=== PATIENT | male | born 2000 | race Caucasian/White ===

== ENCOUNTER 2024-07-14 13:53 | Inpatient (IN) | payer BC, SELFPAY ==
[2024-07-14 14:10] VITALS: BP 132/78; PULSE 103; TEMP 36.8; O2SAT 96
--- OUTSIDE RECORDS SUMMARY | 2024-07-14 14:50 | XMS_ITS | Clinical Summary ---
Author Organization [facility] Address [address] [place] [id number] Phone Care Team Providers Care Computer Consultant Name Role Phone Physician, No Pcp Primary Care Provider Unavaila ble Allergies No known active allergies Medications divalproex (DEPAKOTE) [address] tablet Take 1 tablet (500 mg total) by mouth 2 (two) times a day. 5 Active risperiDONE (RisperDAL) 2 mg tablet Take 1 tablet (2 mg total) by mouth 2 (two) times a day. 5 Active LORazepam (ATIVAN) 1 mg tablet Take 1 tablet (1 mg total) by mouth every 8 (eight) hours if needed for anxiety. Max Daily Amount: 3 mg Active melatonin 3 mg tablet Take 2 tablets (6 mg total) by mouth at bedtime as needed for sleep. Active cloNIDine (CATAPRES) 0.1 mg tablet Take 0.1mg by mouth twice daily 5 Active folic acid (FOLVITE) 1 mg tablet Take 1 tablet (1,000 mcg total) by mouth 1 (one) time each day. 5 Active hydrOXYzine pamoate (VISTARIL) 50 mg capsule Take 1 capsule (50 mg total) by mouth 3 (three) times a day if needed for anxiety. 5 Active lithium (ESKALITH) 450 mg CR tablet Take 450mg by mouth twice daily 5 Active loratadine (CLARITIN) 10 mg tablet Take 1 tablet (10 mg total) by mouth 1 (one) time each day. 5 Active Daily-Latoya tablet Take 1 tablet by mouth 1 (one) time each day. Active nicotine (NICODERM CQ) 21 mg/[address] 1 patch on the skin 1 (one) time each day at the same time. 5 Active nicotine polacrilex (NICORETTE) [address] 1 each (2 mg total) into mouth between cheek and gum every 2 (two) hours if needed for smoking cessation. Active thiamine 100 mg tablet Take 1 tablet (100 mg total) by mouth 1 (one) time each day. 5 Active Invega Sustenna 234 mg/1.5 mL syringe 1.5 ML INTRAMUSCULAR ONCE AT 1:00 PM FOR 1 DAY 5 Active Encounters Date Type Department Care Team Description 07/12/2024 5:40 PM EDT - 07/14/2024 1:47 PM EDT Emergency [facility] [address] [place] [address] Keagan Anders MD Millay, Scot A, MD Kenton, Mark A, MD Garvin, MD Dereje Duenas Matthew C, Discharge Disposition: [facility] 05/10/2024 Telephone Internal Medicine - [place] [address] [place] [id number] Jose Carlos Castillo MD 05/07/2024 11:40 AM EST - 05/09/2024 9:50 AM EST [facility] Emergency [address] [place] [id number] Marques Espinoza MD Christensen, Tyler M, MD Garvin, MD Zamzam Duenas Konstantin, MD Millay, Scot A, MD Suicidal ideation (Primary Dx); 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, [facility] V28) Discharge Disposition: Home or Self Care from Last 3 Months Surgical History Surgery Date Site/Laterality Comments OTHER SURGICAL HISTORY PROCEDURE: DENIES PREVIOUS SURGERY Medical History Medical History Date Comments Heart murmur DX:Heart murmur Depression Hypokalemia 03/2023 per records [facility] Schizophrenia ([facility] V24, [facility] V28) 10/2023 per records [facility] Family History Medical History Relation Name Comments Other: heart murmur Father Depression Maternal Grandmother Relation Name Status Comments Father Maternal Grandmother Social History Tobacco Use Types Packs/Day Years Used Date Smoking Tobacco: Former Smokeless Tobacco: Never Alcohol Use Standard Drinks/Week Comments No 0 (1 standard drink = 0.6 oz pur e alcohol) Sex and Gender Information Value Date Recorded Sex Assigned at Male 05/07/2024 1:41 PM EST Legal Sex Male 10:05 AM EST Gender Identity Male 05/07/2024 1:41 PM EST Sexual Orientation Straight 05/07/2024 1: 41 PM EST Obstetrics History Last Filed Vital Signs Vital Sign Reading Time Taken Comments Blood Pressure 129/69 07/14/2024 11:53 AM EDT Pulse 76 07/14/2024 11:53 AM EDT Temperature 37 ??C (98.6 ??F) 07/14/2024 11:53 AM EDT Respiratory Rate 18 07/14/2024 11:53 AM EDT Oxygen Saturation 97% 07/14/2024 11:53 AM EDT Inhaled Oxygen Concentration - - Weight 98 kg (216 lb) 07/12/2024 5:13 PM EDT Height 180.3 cm (5' 11 ) 07/12/2024 5:13 PM EDT Body Mass Index 30.13 07/12/2024 5:13 PM EDT Plan of Treatment Health Maintenance Due Date Last Done Comments Meningococcal B Vaccine (1 of 2 - Standard) 2016 Depression Screening 02/04/2022 HIV Screening 02/04/2022 Hepatitis C Screening 02/04/2022 Social Influencers of Health Screening 02/04/2022 DTaP,Tdap,and Td Vaccines (7 - Td or Tdap) 10/20/2022 10/20/2012, 08/29/2005, 08/29/2005, Additional history exists COVID-19 Vaccine ( - season) 2023 03/21/2021, 09/18/2020, 08/28/2020 Influenza Vaccine (Season Ended) 2024 03/07/2004 Pneumococcal Vaccine: Pediatrics (0 to 5 Years) and At-Risk Patients (6 to 64 Years) Aged Out 02/04/2001, 2000, 2000 No longer eligible based on patient's age to complete this topic Hepatitis B Vaccines Completed 08/06/2001, 02/01/2001, 2000 HIB Vaccines Completed 11/11/2001, 07/2001, 02/04/2001, Additional history exists IPV Vaccines Completed 08/29/2005, 07/2001, 08/06/2001, Additional history exists MMR Vaccines Completed 08/29/2005, 08/06/2001 Varicella Vaccines Completed 11/28/2009, 08/06/2001 HPV Vaccines Completed 10/26/2015, 04/2014, 10/20/2012 Hepatitis A Vaccines Completed 10/26/2015, 10/21/19 13 Meningococcal ACWY Vaccine Completed 10/24/2016, RSV Immunization Patients Under 20 months Aged Out No longer eligible based on patient's age to complete this topic Procedures Procedure Name Priority Date/Time Associated Diagnosis Comments POCT GLUCOSE BLOOD Routine 07/12/2024 7: 32 PM EDT ECG 12-LEAD STAT 07/12/2024 7:21 PM EDT XR CHEST 2 VIEWS STAT 07/12/2024 7:13 PM EDT METHADONE SCREEN, URINE STAT 07/12/2024 6:18 PM EDT FENTANYL, URINE STAT 07/12/2024 6:18 PM EDT LEE URINE CULTURE TUBE STAT 07/12/2024 5:52 PM EDT URINALYSIS WITH REFLEX MICROSCOPIC AND CULTURE STAT 07/12/2024 5:52 PM EDT URINALYSIS WITH REFLEX MICROSCOPIC AND CULTURE STAT 07/12/2024 5:52 PM EDT THYROID STIMULATING HORMONE STAT Add-on 07/12/2024 5:30 PM EDT ACETAMINOPHEN LEVEL STAT Add-on 07/12/2024 5 :30 PM EDT ETHANOL STAT Add-on 07/12/2024 5:30 PM EDT CBC WITH AUTO DIFFERENTIAL STAT 07/12/2024 5:30 PM EDT LITHIUM LEVEL STAT 07/12/2024 5:30 PM EDT AMMONIA STAT 07/12/2024 5:30 PM EDT COMPREHENSIVE METABOLIC PANEL STAT 07/12/2024 5:30 PM EDT CBC AND DIFFERENTIAL STAT 07/12/2024 5:30 PM EDT METHADONE SCREEN, URINE STAT 05/07/2024 11:54 AM EST PHENCYCLIDINE, URINE STAT 05/07/2024 11:54 AM EST BUPRENORPHINE SCREEN, URINE STAT 05/07/2024 11:54 AM EST DRUG ABUSE SCREEN 8A PANEL, URINE STAT 05/07/2024 11:54 AM EST CBC WITH AUTO DIFFERENTIAL STAT 05/07/2024 11:53 AM EST SALICYLATE LEVEL STAT 05/07/2024 11:5 3 AM EST ACETAMINOPHEN LEVEL STAT 05/07/2024 1 1:53 AM EST ETHANOL STAT 05/07/2024 11:53 AM EST COMPREHENSIVE METABOLIC PANEL STAT 05/07/2024 11:53 AM EST CBC AND DIFFERENTIAL STAT 05/07/2024 11:53 AM EST from Last 3 Months Results * POCT Glucose, blood (07/12/2024 7:32 PM EDT) [facility] Glucose POCT 85 70 - 100 mg/dL 07/12/2024 7:33 PM EDT [facility] Blood Capillary blood specimen / Unknown 07/12/2024 7:32 PM EDT 07/12/2024 7:34 PM EDT Keagan Anders MD LAB POINT OF CARE T EST DOCKED DEVICE UNSOLICITED RESULTS Final Result Performing Organization Address [facility]/ZIP Co de Phone Number [facility] [address] [place] [address], [place] [phone] * ECG 12 lead (07/12/2024 7:21 PM EDT) Ventricular Rate ECG 86 BPM GEMUSE Atrial Rate 86 BPM GEMUSE P-R Interval 174 ms GEMUSE QRS Duration 96 ms GEMUSE Q-T Interval 390 ms GEMUSE QTc 466 ms GEMUSE P Wave [place] 48 degrees GEMUSE R [place] 41 degrees GEMUSE T [place] 41 degrees GEMUSE ECG Interpretation Normal sinus rhythm Normal ECG No previous ECGs available Confirmed by KISHAN DUMONT ([id number]) on 07/13/2024 8:19:06 AM GEMUSE 07/12/2024 7:21 PM EDT 07/13/2024 8:19 AM EDT Keagan Anders MD ECG ORDERABLES Final Resul t Performing Organization Address City/[facility]/ZIP Co de Phone Number [facility] * XR Chest 2 Views (07/12/2024 7:13 PM EDT) Anatomical Region Laterality Modality Body Radiographic Martha ging 07/13/2024 8:19 AM EDT Impressions 07/13/2024 8:21 AM EDT 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 Otherwise, normal examination. Code 10907 -------- FINAL REPORT -------- Dictated By: Kuldip Christian Dictated Date: 07/13/2024 08:19 ET Assigned Physician: Kuldip Christian Reviewed and Electronically Signed By: Kuldip Christian Signed Date: 07/13/2024 08:21 ET Workstation ID: [id number] Transcribed By: Self Edit Transcribed Date: 07/13/2024 08:19 ET Narrative 07/13/2024 8:21 AM EDT HISTORY: The patient is a 23-year-old male with altered mental status. FINDINGS: PA and lateral radiographs of the chest, without previous for comparison, demonstrate the left first rib to be rudimentary, a congenital variant. The bony structures are otherwise of normal appearance. The cardiac and mediastinal contours are within normal limits. The lungs and costophrenic angles are clear. Procedure Note Kuldip Christian MD - 07/13/2024 HISTORY: The patient is a 23-year-old male with altered mental status. FINDINGS: PA and lateral radiographs of the chest, without previous forcomparison, demonstrate the left first rib to be rudimentary, a congenitalvariant. The bony structures are otherwise of normal appearance. Thecardiac and mediastinal contours are within normal limits. The lungs andcostophrenic angles are clear. 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 Otherwise, normalexamination. Code 15795 -------- FINAL REPORT -------- Dictated By: Kuldip Christian Dictated Date: 07/13/2024 08:19 ET Assigned Physician: Kuldip Christian Reviewed and Electronically Signed By: Kuldip Christian Signed Date: 07/13/2024 08:21 ET Workstation ID: [id number] Transcribed By: Self Edit Transcribed Date: 07/13/2024 08:19 ET us Keagan Anders MD IMG XR PROCEDURES Final Res ult * Methadone, urine (07/12/2024 6:18 PM EDT) Only the most recent of2 resultswithin the time period is included. Methadone Screen, Urine Negative Negative LAB CHEMISTRY METHOD 07/12/2024 7:21 PM EDT [facility] Comment: Assay cutoff 300 ng/mL Semi-quantitative assay for screening purposes only. Unconfirmed screening result should not be used for non-medical purposes. *ALTERNATE METHOD CONFIRMATION DONE UPON REQUEST ONLY* Urine Urine specimen obtained by clean catch procedure / Unknown Non-blood Collection / Unknown 07/12/2024 6:18 PM EDT 07/12/2024 6:30 PM EDT Keagan Anders MD LAB URINE ORDERABLES Final Result Performing Organization Address [facility] de Phone Number [facility] [address] [place] [address], [place] [phone] * Fentanyl urine (07/12/2024 6:18 PM EDT) Fentanyl, Ur Negative Negative LAB CHEMISTRY METHOD 07/12/2024 7:16 PM EDT [facility] Urine Urine specimen obtained by clean catch procedure / Unknown Non-blood Collection / Unknown 07/12/2024 6:18 PM EDT 07/12/2024 6:30 PM EDT Narrative [facility] - 07/12/2024 7:16 PM EDT Assay cutoff 1 ng/mL Semi-quantitative assay for screening purposes only. Unconfirmed screening result should not be used for non-medical purposes. *ALTERNATE METHOD CONFIRMATION DONE UPON REQUEST ONLY* Keagan Anders MD LAB URINE ORDERABLES Final Result Performing Organization Address [facility] de Phone Number [facility] [address] [place] [address], [place] [phone] * (ABNORMAL) Urinalysis with reflex microscopic and culture (07/12/2024 5:52 PM EDT) Specific [place] Urine 1.018 1.003 - 1.030 LAB URINALYSIS - AUTOMATED METHOD 07/12/2024 6:46 PM EDT [facility] pH, Urine 6.0 5.0 - 8.0 pH LAB URINALYSIS - AUTOMATED METHOD 07/12/2024 6:46 PM EDT [facility] Leukocytes, Urine Negative Negative LAB URINALYSIS - AUTOMATED METHOD 07/12/2024 6:46 PM [facility] Nitrite, Urine Negative Negative LAB URINALYSIS - AUTOMATED METHOD 07/12/2024 6:46 PM [facility] Protein, Urine 30(A) <=Trace mg/dL LAB URINALYSIS - AUTOMATED METHOD 07/12/2024 6:46 PM [facility] Glucose, Urine Negative Negative mg/dL LAB URINALYSIS - AUTOMATED METHOD 07/12/2024 6:46 PM [facility] Ketones, Urine 40(A) Negative mg/dL LAB URINALYSIS - AUTOMATED METHOD 07/12/2024 6:46 PM [facility] Urobilinogen, Urine 1.0 0.2 - 1.0 mg/dL LAB URINALYSIS - AUTOMATED METHOD 07/12/2024 6:46 PM [facility] Bilirubin, Urine Negative Negative LAB URINALYSIS - AUTOMATED METHOD 07/12/2024 6:46 PM [facility] Blood, Urine Negative Negative LAB URINALYSIS - AUTOMATED METHOD 07/12/2024 6:46 PM [facility] RBC, Urine 1.9 0 - 4 /HPF LAB URINALYSIS - AUTOMATED METHOD 07/12/2024 6:46 PM [facility] WBC, Urine 2.3 0 - 4 /HPF LAB URINALYSIS - AUTOMATED METHOD 07/12/2024 6:46 PM [facility] Squamous Epithelial, Urine 21 0 - 60 /LPF LAB URINALYSIS - AUTOMATED METHOD 07/12/2024 6:46 PM [facility] Bacteria, Urine Negative Negative /HPF LAB URINALYSIS - AUTOMATED METHOD 07/12/2024 6:46 PM [facility] Hyaline Casts, Urine 1.6 0 - 3 /LPF LAB URINALYSIS - AUTOMATED METHOD 07/12/2024 6:46 PM [facility] Urine Urine specimen obtained by clean catch procedure / Unknown Non-blood Collection / Unknown 07/12/2024 5:52 PM EDT 07/12/2024 6:29 PM EDT Keagan Anders MD LAB URINE ORDERABLES Final Result Performing Organization Address [facility]/ZIP Co de Phone Number [facility] [address] [place] [address], [place] [phone] * Lee urine culture tube (07/12/2024 5:52 PM EDT) Pathologist [facility] Extra Tube Hold for add-ons. 07/12/2024 8:01 PM EDT [facility] Comment:Auto resulted. Urine Urine specimen obtained by clean catch procedure / Unknown Non-blood Collection / Unknown 07/12/2024 5:52 PM EDT 07/12/2024 6:29 PM EDT Keagan Anders MD LAB URINE ORDERABLES Final Result Performing Organization Address [facility] Co de Phone Number [facility] [address] [place] [address], [place] [phone] * (ABNORMAL) CBC auto differential (07/12/2024 5:30 PM EDT) Only the most recent of2 resultswithin the time period is included. WBC 8.1 4.8 - 10.8 K/[facility] HEMETOLOGY METHOD 07/12/2024 6:01 PM EDT [facility] RBC 5.20 4.50 - 5.50 M/[facility] LAB HEMETOLOGY METHOD 07/12/2024 6:01 PM EDT [facility] Hemoglobin 14.9 13.5 - 17.5 g/dL LAB HEMETOLOGY METHOD 07/12/2024 6:01 PM EDT [facility] Hematocrit 45.4 42.0 - 54.0 % LAB HEMETOLOGY METHOD 07/12/2024 6:01 PM [facility] MCV 87.1 79.0 - 98.0 FL LAB HEMETOLOGY METHOD 07/12/2024 6:01 PM [facility] MCH 28.6 27.0 - 32.0 pcg LAB HEMETOLOGY METHOD 07/12/2024 6:01 PM [facility] MCHC 32.8 32.0 - 37.0 g/dL LAB HEMETOLOGY METHOD 07/12/2024 6:01 PM [facility] RDW 13.1 11.0 - 15.0 % LAB HEMETOLOGY METHOD 07/12/2024 6:01 PM [facility] Platelets 247 130 - 400 K/mcL LAB HEMETOLOGY METHOD 07/12/2024 6:01 PM [facility] MPV 11.9(H) 7.0 - 11.0 FL LAB HEMETOLOGY METHOD 07/12/2024 6:01 PM [facility] NRBC 0.0 <1.0 % LAB HEMETOLOGY METHOD 07/12/2024 6:01 PM [facility] NRBC Absolute 0.00 <0.10 K/mcL LAB HEMETOLOGY METHOD 07/12/2024 6:01 PM [facility] Neutrophils Relative 74.7 % LAB HEMETOLOGY METHOD 07/12/2024 6:01 PM [facility] Lymphocytes Relative 16.0 % LAB HEMETOLOGY METHOD 07/12/2024 6:01 PM [facility] Monocytes Relative 7.7 % LAB HEMETOLOGY METHOD 07/12/2024 6:01 PM [facility] Eosinophils Relative 0.9 % LAB HEMETOLOGY METHOD 07/12/2024 6:01 PM [facility] Basophils Relative 0.5 % LAB HEMETOLOGY METHOD 07/12/2024 6:01 PM EDT [facility] Immature Granulocytes Relative 0.2 % LAB HEMETOLOGY METHOD 07/12/2024 6:01 PM EDT [facility] Neutrophils Absolute 6.07 1.50 - 7.00 K/mcL LAB HEMETOLOGY METHOD 07/12/2024 6:01 PM EDT [facility] Lymphocytes Absolute 1.30 1.00 - 5.00 K/mcL LAB HEMETOLOGY METHOD 07/12/2024 6:01 PM EDT [facility] Monocytes Absolute 0.63 0.20 - 1.00 K/mcL LAB HEMETOLOGY METHOD 07/12/2024 6:01 PM EDT [facility] Eosinophils Absolute 0.07 0.00 - 0.50 K/mcL LAB HEMETOLOGY METHOD 07/12/2024 6:01 PM EDT [facility] Basophils Absolute 0.04 0.00 - 0.20 K/mcL LAB HEMETOLOGY METHOD 07/12/2024 6:01 PM EDT [facility] Immature Granulocytes Absolute 0.02 0.00 - 0.03 K/mcL LAB HEMETOLOGY METHOD 07/12/2024 6:01 PM EDT [facility] Blood Venous blood specimen / Unknown Venipuncture / Unknown 07/12/2024 5:30 PM EDT 07/12/2024 5:51 PM EDT us Keagan Anders MD LAB BLOOD ORDERABLES Final Result [facility] [address] [place] [address], * Thyroid stimulating hormone (TSH) (07/12/2024 5:30 PM EDT) TSH 3.69 0.40 - 4.00 mcIU/mL LAB CHEMISTRY METHOD 07/12/2024 8:56 PM EDT [facility] Blood Venous blood specimen / Unknown Venipuncture / Unknown 07/12/2024 5:30 PM EDT 07/12/2024 5:51 PM EDT Keagan Anders MD LAB BLOOD ORDERABLES Final Result Performing Organization Address [facility]/ZIP Co de Phone Number [facility] [address] [place] [address], [place] [phone] * (ABNORMAL) Ammonia (07/12/2024 5:30 PM EDT) Ammonia <10(L) 11 - 35 mcmol/L LAB CHEMISTRY METHOD 07/12/2024 6:20 PM EDT [facility] Blood Venous blood specimen / Unknown Venipuncture / Unknown 07/12/2024 5:30 PM EDT 07/12/2024 5:51 PM EDT Keagan Anders MD LAB BLOOD ORDERABLES Final Result Performing Organization Address [facility] de Phone Number [facility] [address] [place] [address], [place] [phone] * Ethanol (07/12/2024 5:30 PM EDT) Only the most recent of2 resultswithin the time period is included. Ethanol Level 5 0 - 10 mg/dL LAB CHEMISTRY METHOD 07/12/2024 6:33 PM EDT [facility] Blood Venous blood specimen / Unknown Venipuncture / Unknown 07/12/2024 5:30 PM EDT 07/12/2024 5:51 PM EDT Keagan Anders MD LAB BLOOD ORDERABLES Final Result Performing Organization Address City/[facility] Co de Phone Number [facility] [address] [place] [address], * (ABNORMAL) Acetaminophen level (07/12/2024 5:30 PM EDT) Only the most recent of2 resultswithin the time period is included. Acetaminophen Level <2.0(L) 10.0 - 30.0 mcg/mL LAB CHEMISTRY METHOD 07/12/2024 6:33 PM EDT [facility] Blood Venous blood specimen / Unknown Venipuncture / Unknown 07/12/2024 5:30 PM EDT 07/12/2024 5:51 PM EDT Keagan Anders MD LAB BLOOD ORDERABLES Final Result Performing Organization Address [facility]/ZIP Co de Phone Number [facility] [address] [place] [address], * [place] level (07/12/2024 5:30 PM EDT) [place] Level 0.7 0.6 - 1.2 mEq/L LAB CHEMISTRY METHOD 07/12/2024 6:33 PM EDT [facility] Blood Venous blood specimen / Unknown Venipuncture / Unknown 07/12/2024 5:30 PM EDT 07/12/2024 5:51 PM EDT Keagan Anders MD LAB BLOOD ORDERABLES Final Result [facility] [address] [place] [address], * (ABNORMAL) Comprehensive metabolic panel (07/12/2024 5:30 PM EDT) Only the most recent of2 resultswithin the time period is included. Sodium 135 133 - 145 mmol/L LAB CHEMISTRY METHOD 07/12/2024 6:33 PM EDT [facility] Potassium 4.0 3.5 - 5.5 mmol/L LAB CHEMISTRY METHOD 07/12/2024 6:33 PM [facility] Comment:Hemolysis present Chloride 102 96 - 110 mmol/L LAB CHEMISTRY METHOD 07/12/2024 6:33 PM [facility] CO2 25 21 - 32 mmol/L LAB CHEMISTRY METHOD 07/12/2024 6:33 PM [facility] Anion Gap 8 3 - 11 LAB CHEMISTRY METHOD 07/12/2024 6:33 PM [facility] Glucose 97 70 - 100 mg/dL LAB CHEMISTRY METHOD 07/12/2024 6:33 PM [facility] BUN 8 5 - 25 mg/dL LAB CHEMISTRY METHOD 07/12/2024 6:33 PM [facility] Creatinine 0.92 0.70 - 1.30 mg/dL LAB CHEMISTRY METHOD 07/12/2024 6:33 PM [facility] eGFR 120 >=60 mL/min/1. 73m2 LAB CHEMISTRY METHOD 07/12/2024 6:33 PM [facility] Comment:Calculation based on the Chronic Kidney Disease Epidemiology Collaboration (CKD-EPI) equation refit without adjustment for race. BUN/Creatinine Ratio 8.7 LAB CHEMISTRY METHOD 07/12/2024 6:33 PM [facility] Calcium 9.9 8.5 - 10.5 mg/dL LAB CHEMISTRY METHOD 07/12/2024 6:33 PM [facility] AST (SGOT) 16 10 - 42 unit/L LAB CHEMISTRY METHOD 07/12/2024 6:33 PM [facility] Comment:Hemolysis present ALT (SGPT) 21 10 - 60 unit/L LAB CHEMISTRY METHOD 07/12/2024 6:33 PM [facility] Alkaline Phosphatase 90 42 - 121 unit/L LAB CHEMISTRY METHOD 07/12/2024 6:33 PM [facility] Total Protein 8.5(H) 6.0 - 8.0 g/dL LAB CHEMISTRY METHOD 07/12/2024 6:33 PM EDT [facility] Albumin 4.7 3.2 - 5.0 g/dL LAB CHEMISTRY METHOD 07/12/2024 6:33 PM EDT [facility] Total Bilirubin 0.6 0.0 - 1.4 mg/dL LAB CHEMISTRY METHOD 07/12/2024 6:33 PM EDT [facility] Blood Venous blood specimen / Unknown Venipuncture / Unknown 07/12/2024 5:30 PM EDT 07/12/2024 5:51 PM EDT us Keagan Anders MD LAB BLOOD ORDERABLES Final Result [facility] [address] [place] [address], * (ABNORMAL) Drug abuse screen 8a panel, urine (05/07/2024 11:54 AM EST) Amphetamine Screen, Ur Negative Negative LAB CHEMISTRY METHOD 5 12:46 PM [facility] Comment:Certain OTC medicati ons containing ephedrine, phenylephrine, pseudoephedrine and phenylpropanolamine can cause false positive results. Barbiturate Screen, Ur Negative Negative LAB CHEMISTRY METHOD 5 12:46 PM EST [facility] Benzodiazepine Screen, Ur Negative Negative LAB CHEMISTRY METHOD 5 12:46 PM [facility] Cocaine Screen, Ur Negative Negative LAB CHEMISTRY METHOD 5 12:46 PM [facility] Opiate Screen, Ur Negative Negative LAB CHEMISTRY METHOD 5 12:46 PM [facility] Cannabinoid (THC) Screen, Ur Positive(A ) Negative LAB CHEMISTRY METHOD 5 12:46 PM [facility] Comment:Specimens from patie nts taking pantoprazole sodium (Protonix) have been shown to produce false positive results. Oxycodone Screen, Ur Negative Negative LAB CHEMISTRY METHOD 12:46 PM EST [facility] Fentanyl, Ur Negative Negative LAB CHEMISTRY METHOD 12:46 PM EST [facility] Urine Urine specimen obtained by clean catch procedure / Unknown Non-blood Collection / Unknown 05/07/2024 11:54 AM EST 05/07/2024 12:14 PM EST Narrative [facility] - 05/07/2024 12:46 PM EST Assay cutoffs: Amphetamines ? 1000 ng/mL Barbiturates ?200 ng/mL Benzodiazepines ?? 200 ng/mL Cocaine ? 300 ng/mL Fentanyl ?1 ng/mL Opiates ? 300 ng/mL Oxycodone ? 100 ng/mL THC ?50 ng/mL Semi-quantitative assay for screening purposes only. Unconfirmed screening result should not be used for non-medical purposes. *ALTERNATE METHOD CONFIRMATION DONE UPON REQUEST ONLY* Marques Espinoza MD LAB URINE ORDERABLES Final Resu lt [facility]) [facility] [address] [place] [address], * Buprenorphine screen, urine (05/07/2024 11:54 AM EST) Buprenorphine Screen Urine Negative Negative LAB CHEMISTRY METHOD 05/07/2024 12:46 PM EST [facility] Urine Urine specimen obtained by clean catch procedure / Unknown Non-blood Collection / Unknown 05/07/2024 11:54 AM EST 05/07/2024 12:14 PM EST Narrative [facility] - 05/07/2024 12:46 PM EST Assay cutoff 5 ng/mL Semi-quantitative assay for screening purposes only. Unconfirmed screening result should not be used for non-medical purposes. *ALTERNATE METHOD CONFIRMATION DONE UPON REQUEST ONLY* us Marques Espinoza MD LAB URINE ORDERABLES Final Resu lt Performing Organization Address City/[facility]/ZIP Co de Phone Number [facility] [address] [place] [address], [place] [phone] * Phencyclidine, urine (05/07/2024 11:54 AM EST) PCP Scrn, Ur Negative Negative LAB CHEMISTRY METHOD 05/07/2024 12:46 PM EST [facility] Comment: Assay cutoff 25 ng/mL Semi-quantitative assay for screening purposes only. Unconfirmed screening result should not be used for non-medical purposes. *ALTERNATE METHOD CONFIRMATION DONE UPON REQUEST ONLY* Urine Urine specimen obtained by clean catch procedure / Unknown Non-blood Collection / Unknown 05/07/2024 11:54 AM EST 05/07/2024 12:14 PM EST us Marques Espinoza MD LAB URINE ORDERABLES Final Resu lt Performing Organization Address City/[facility]/ZIP Co de Phone Number [facility] [address] [place] [address], [place] [phone] * (ABNORMAL) Salicylate level (05/07/2024 11:53 AM EST) Salicylate Level <1.7(L) 2.0 - 29.0 mg/dL LAB CHEMISTRY METHOD 05/07/2024 12:53 PM EST [facility] Blood Venous blood specimen / Unknown Venipuncture / Unknown 05/07/2024 11:53 AM EST 05/07/2024 12:14 PM EST us Marques Espinoza MD LAB BLOOD ORDERABLES Final [facility]u lt [facility] [address] [place] [address], from Last 3 Months Insurance [facility] Care Teams Computer Consultant Relationship Specialty Start Date End Date Physician, No Pcp PCP - General 07/12/24
--- NOTE | 2024-07-14 19:49 | PC.ADMIT ---
Mr. Deras is a 23 year old cis male who goes by he/ him pronouns. He was admitted from [facility] and arrived on the unit at 2:07pm via stretcher. He carries the diagnosis of unspecified schizophrenia spectrum. Cooperative with skin/ safety check which was unremarkable except for acne on his back and torso. He signed a CV and was put on safety checks q 15 minutes. Per [facility], Mr. Deras was brought to their ER on 07/12/24 by his grandmother (with whom he lives) for recent decompensation following an inpatient psych admission elsewhere where they changed his medication regimen. He endorses AVH and reportedly has been experiencing command AH telling him not to eat, however he did not say this to this radio script writer. He reportedly denied SI /HI at [facility]. When he arrived here on M5 his speech was slowed and he appeared thought blocked, mostly giving one-word responses after very long pauses. When reviewing the systems, Mr. Deras responded most often with, Probably , but did not elaborate in any way (e.g. Do you have a history of concussions/ seizures/ cardiac issues/ respiratory issues? Do you have sleep apnea/ diabetes, etc.) There is no mention of medical conditions in the information from [facility]. Mr. Deras declined to complete his menus, complete his Safety Tool or contribute to his Initial Treatment Plan and presented with a paranoid edge, stating that all food is laced with cannabis, and that he hasn't slept because, I don't know what sleep is. Med reconciliation was done with his pharmacy and Prescriber's office. Once he settled in, he spent time pacing the unit and his eye contact did improve. He also became a bit more verbal, Is this [place]? Is there something I should eat? Drink?
[2024-07-15 08:06] VITALS: BP 131/78; PULSE 70; TEMP 36.9; O2SAT 96
--- NOTE | 2024-07-15 09:41 | HO.PSYADMNOT ---
HPI Date of Service: 07/15/24 Chief Complaint: UNSPECIFIED SCHIZOPHRENIA SPECTRUM Sources of Information: patient interviewed, chart reviewed and crisis/core team assessment reviewed HPI Subjective Notes: Pichardo Warning, Conditional Voluntary and 3 Day Narrative: pt seen at 12:15pm on 07/15/24 Pt is a 23 yo male with history of schizophrenia (possibly schizoaffective disorder) who presents for worsening psychotic symptoms at the behest of his family who report patient has not been eating, in the face of being off medication. Patient is a limited historian as he is significantly internally preoccupied and with significant thought blocking. Patient acknowledges that he has auditory hallucinations and says don't know what's me and what's not. On inquiry about AH He nods yes to AH telling him to not eat don't drink., On the unit he still eating and drinking, which he says is because he is trying not to listen to voices... i see other people do stuff...their not not doing things... Patient denies SI but says sometimes he feels like dying but I just haven't... He denies past suicide attempts saying he ends up restricted says he is not allowed to hurt himself. Regarding medications, patient says that Invega does help but he then says (in between long silences from thought blocking) I thought medication gave control to the voices... To run your own thoughts... I am not looking for anything... I ran away from emotions... Patient endorses insomnia and says he can not sleep. Regarding paranoid ideations, patient says i never had privacy for a long time...if i new there was a no privacy i would have acted differently, but i guess this was a test... Pt says everyone is invading my privacy... and says random people know about him...How? pt says he just knows..other people tell him stuff...i don't know what the sources is... Pt's says he thinks typewriter aligner and SW are included in this.. Past Psychiatric History: multiple inpt admissions Medical Evaluation Reviewed: Hospitalist Eval Pending [facility] Family History: deferred Social History: lives at home with parents some college Substance History: unclear Trauma History: deferred Diagnostics Vital Signs (24Hr): Vital Signs - 24 hr 07/14/24 14:10 07/15/24 08:06 Temperature 98.3 F 98.5 F Pulse Rate 103 H 70 Blood Pressure 132/78 131/78 Pulse Oximetry 96 96 Oxygen Delivery Method Room Air Room Air Labs 07/15/24 13:18 07/15/24 13:18 Meds/Allergies Meds Home Medications ?Medication ?Instructions ?Recorded ?Confirmed ?Type clonidine HCl 0.1 mg tablet 0.1 mg 2XD PRN Anxiety 07/14/24 07/14/24 History divalproex 500 mg tablet,delayed 500 mg PO BID 07/14/24 07/14/24 History release folic acid 1 mg tablet 1 mg PO DAILY 07/14/24 07/14/24 History lithium carbonate 450 mg 450 mg PO BID 07/14/24 07/14/24 History tablet,extended release loratadine 10 mg tablet 10 mg PO DAILY 07/14/24 07/14/24 History multivitamin (Daily-Latoya tablet) 1 tab PO DAILY 07/14/24 07/14/24 History paliperidone palmitate 234 mg/1.5 234 mg IM QMONTH 07/14/24 07/14/24 History mL intramuscular syringe (Invega Sustenna) thiamine HCl (vitamin B1) 100 mg 100 mg PO DAILY 07/14/24 07/14/24 History tablet Allergies Allergies Allergy/AdvReac Type Severity Reaction Status Date / Time No Known Allergies Allergy Verified 07/14/24 16:16 Mental Status Exam Mental Status Exam Narrative: Pt is alert and oriented; behavior is isolative, guarded, quiet, internally preoccupied; patient is not in distress; dressed in casual attire, disheveled; mood is described as anxious; affect blunted; eye contact avoidant; Speech significantly latent; quiet; psychomotor retardation present; thought process marred by thought blocking; goal directed; Thought content is on paranoid ideations, AH; seems to deny SI/no HI. CAH. Patients insight and judgment appear impaired. Assessment & Plan Assessment & Plan (1) Schizophrenia: Status: Acute Code(s): F20.9 - Schizophrenia, unspecified Plan HPI: Pt is a 23 yo male with history of schizophrenia (possibly schizoaffective disorder) who presents for worsening psychotic symptoms at the behest of his family who report patient has not been eating, in the face of being off medication. Patient is a limited historian as he is significantly internally preoccupied and with significant thought blocking. Patient acknowledges that he has auditory hallucinations and says don't know what's me and what's not. On inquiry about AH He nods yes to AH telling him to not eat don't drink., On the unit he still eating and drinking, which he says is because he is trying not to listen to voices... i see other people do stuff...their not not doing things... Patient denies SI but says sometimes he feels like dying but I just haven't... He denies past suicide attempts saying he ends up restricted says he is not allowed to hurt himself. Regarding medications, patient says that Invega does help but he then says (in between long silences from thought blocking) I thought medication gave control to the voices... To run your own thoughts... I am not looking for anything... I ran away from emotions... Patient endorses insomnia and says he can not sleep. Regarding paranoid ideations, patient says i never had privacy for a long time...if i new there was a no privacy i would have acted differently, but i guess this was a test... Pt says everyone is invading my privacy... and says random people know about him...How? pt says he just knows..other people tell him stuff...i don't know what the sources is... Pt's says he thinks typewriter aligner and SW are included in this.. formulation; clinical reasoning: floridly psychotic; almost no insight. Discussed meds and he says he'll try Clozapine; does not want to get back on Invega (also, father reported says Invega sustenna 234mg worked well but for only 2 weeks). He says he can't sleep; will restart Gardner (most recently prescribed) significant negative symptoms PLAN: CV q15mn Start Clozapine 25mg bedtime (ANC wnl) Gardner ER 600mg qhs Patient educated on: diagnosis and medication risk/benefits Informed Consent: understands, does not understand and further education needed Reason for continued inpatient stay Substantial Risk for: inability to function Statement Statement: I have reviewed the history and physical and performed a pertinent examination on my patient. No changes have occurred unless specified. If the History and Physical was not performed prior to admission, the Hospitalist's service will be consulted for completing the admission physical. Time Spent With Patient Time: Total time managing care of this patient today ____ minutes.
--- NOTE | 2024-07-15 11:45 | PM.IMHP ---
History of Present Illness Date of Service: 07/15/24 Attending physician on admission: Srini Harris Chief Complaint: Medical H&P Patient is a 23-year-old male with a past medical history of schizophrenia, heart murmur, history of hypokalemia. Recent psychiatric admissions and medications were recently changed, he was started on Invega unclear when the last dose was. He presented with his grandmother due to being more lethargic and not eating. No reported history of alcohol or drug use. On exam he is not answering any questions, does shake his head yes or no after a slight delay. He is not talking but he is following instructions such as take a deep breath. He is cooperative with exam. Asked if he would like something to drink and he shook his head yes and is observed drinking some alexandra huy. Review of Systems Review of Systems: Yes Unobtainable due to mental status PMFSH Social History Household Members: Other Household Members Other:: grandmother Housing: House Do you presently have visiting nurse or other home services: Yes Patient Tobacco Use Status: Former Tobacco user e-Cigarette/Vaping Use: Never Used Second Hand Smoke Exposure: No Substance Use Type: Marijuana Meds Allergies Allergy/AdvReac Type Severity Reaction Status Date / Time No Known Allergies Allergy Verified 07/14/24 16:16 Active Medications: Current Medications Acetaminophen (Acetaminophen 325 Mg Tablet) 650 mg PO Q6H PRN PRN Reason: Headache/Pain, Scale 1-10 Al Hydroxide/Mg Hydroxide (Magnesium Hydrox/Alum Hydrox 30 Ml Oral.Susp) 30 ml PO Q6H PRN PRN Reason: Heartburn/Nausea Clonidine HCl (Clonidine Hcl 0.1 Mg Tablet) 0.1 mg PO BID PRN; Protocol PRN Reason: anxiety Folic Acid (Folic Acid 1 Mg Tablet) 1 mg PO DAILY [facility] Last Admin: 07/15/24 09:02 Dose: Not Given Hydroxyzine HCl (Hydroxyzine Hcl 25 Mg Tablet) 25 mg PO Q6H PRN PRN Reason: mild anxiety Loratadine (Loratadine 10 Mg Tablet) 10 mg PO DAILY [facility] Last Admin: 07/15/24 09:02 Dose: Not Given Magnesium Hydroxide (Milk Of Magnesia 30 Ml Oral.Susp) 30 ml PO DAILY PRN PRN Reason: Constipation Multivitamins/Vitamin C (Multivitamin Tablet) 1 tab PO DAILY [facility] Last Admin: 07/15/24 09:02 Dose: Not Given Nicotine Polacrilex (Nicotine Polacrilex 2 Mg Gum) 4 mg BUCCAL Q2H PRN PRN Reason: Nicotine Cravings Thiamine HCl (Thiamine Hcl 100 Mg Tablet) 100 mg PO DAILY [facility] Last Admin: 07/15/24 09:03 Dose: Not Given Trazodone HCl (Trazodone Hcl 50 Mg Tablet) 50 mg PO BEDTIME MRX1 PRN PRN Reason: Insomnia Home Medications ?Medication ?Instructions ?Recorded ?Confirmed ?Last Taken ?Type clonidine HCl 0.1 mg tablet 0.1 mg 2XD PRN Anxiety 07/14/24 07/14/24 Unknown History divalproex 500 mg tablet,delayed 500 mg PO BID 07/14/24 07/14/24 Unknown History release folic acid 1 mg tablet 1 mg PO DAILY 07/14/24 07/14/24 Unknown History lithium carbonate 450 mg 450 mg PO BID 07/14/24 07/14/24 Unknown History tablet,extended release loratadine 10 mg tablet 10 mg PO DAILY 07/14/24 07/14/24 Unknown History multivitamin (Daily-Latoya tablet) 1 tab PO DAILY 07/14/24 07/14/24 Unknown History paliperidone palmitate 234 mg/1.5 234 mg IM QMONTH 07/14/24 07/14/24 Unknown History mL intramuscular syringe (Invega Sustenna) thiamine HCl (vitamin B1) 100 mg 100 mg PO DAILY 07/14/24 07/14/24 Unknown History tablet Physical Exam Vital Signs and Narrative: Vital Signs: Last Vital Signs Temp 98.5 F 07/15/24 08:06 Pulse 70 07/15/24 08:06 BP 131/78 07/15/24 08:06 Pulse Ox 96 07/15/24 08:06 O2 Del Method Room Air 07/15/24 08:06 Alert, Declines to answer questions or is unable to at this time, Follows directions. Neuro: Unable to perform complete neurological exam due to limited participation by patient, no obvious deficits, He did ambulate with steady gait. Followed simple instructions. ENT: hearing intact, uvula midline, lips moist, nares patent no epistaxis Cardiac: S1 S2 RRR, no murmur, no edema in Lower ext Pulmonary: lungs clear to auscultation, No increased WOB. Abdominal: BS active in all 4 quadrants, no guarding, tenderness, rebounding MSK: Strength 5/5 upper and lower extremities : no CVA tenderness no bladder distension Extremities: no edema in lower extremities Psych: Non verbal at this time, occasionally maintains eye contact. Skin: Warm and dry, Intact Assessment and Plan (1) Schizophrenia: Status: Acute Plan Schizophrenia Continue to treat per psychiatric team Comfort measures including food and fluids Thank you for allowing me to participate in the care of this patient. Signing off at this time. Please reconsult of any acute complaints or issues arise Quality Stroke Does the patient have a stroke diagnosis?: No VTE Prior VTE?: No VTE Risk Level:: Medical - low VTE Device Contraindication: Treatment Not Indicated VTE Drug Contraindication: Treatment Not Indicated
[2024-07-15 13:30] LABS: MANUAL DIFF FLAG NO
[2024-07-15 13:34] LABS: Neut%MD 67.9 %; WBCANC 7.3 X10*3/uL
[2024-07-15 13:35] LABS: Basophils Percent Auto 0.6 % (0-2); Eosinophils Absolute Auto 0.1 X10*3/uL (0.0-0.4); Eosinophils Percent Auto 1.7 % (0-4); Hematocrit 43.7 % (42.0-52.0); Hemoglobin 14.7 g/dl (14.0-18.0); Imm Gran Abs Auto 0.02 X10*3/uL (0.00-0.03); Imm Gran Pct Auto 0.3 % (0.0-0.4); Lymphocytes Absolute Auto 1.3 X10*3/uL (1.2-4.9); Lymphocytes Percent Auto 18.4 % (20-40); Mean Corpuscular HGB Conc 33.6 g/dl (31.0-36.0); Mean Corpuscular Hemoglobin 28.8 pg (27.0-33.0); Mean Corpuscular Volume 85.7 fL (80.0-98.0); Mean Platelet Volume 11.9 fL (9.4-12.4); Monocytes Absolute Auto 0.7 X10*3/uL (0.1-1.2); Monocytes Percent Auto 9.8 % (2-11); Neutrophils Absolute Auto 4.9 x10*3/uL (2.0-8.3); Neutrophils Percent Auto 69.2 % (45-73); Platelet Count 249 X10*3/uL (160-400); Red Cell Distribution Width 12.9 % (11.0-16.0); White Blood Count 7.1 X10*3/uL (4.8-10.8)
[2024-07-15 14:22] LABS: Alanine Aminotransferase 16 U/L (0-40); Albumin Level 4.9 g/dL (3.5-5.0); Alkaline Phosphatase 83 U/L (39-117); Anion Gap 13 (12-20); Aspartate Amino Transferase 20 U/L (5-37); Bilirubin Total 0.7 mg/dL (0.0-1.0); Blood Urea Nitrogen 15 mg/dL (9-16); Calcium 9.8 mg/dL (8.4-10.2); Carbon Dioxide 25 mmol/L (22-29); Chloride 101 mmol/L (96-108); Cholesterol 192 mg/dL (<200); Estimated Glomerular Filt Rate > 60; Free T4 (Free Thyroxine) 1.21 ng/dL (0.71-1.85); Glucose Random 93 mg/dL (60-115); HDL Cholesterol 30 mg/dL (>40); LDL Cholesterol Calculated 148 mg/dL (<100); Magnesium 2.3 mg/dL (1.6-2.6); Potassium 3.8 mmol/L (3.3-5.1); Sodium 135 mmol/L (135-145); Thyroid Stimulating Hormone 3.08 uIU/mL (0.32-4.0); Total Protein 8.4 g/dL (6.5-8.0); Triglycerides 72 mg/dL (<150)
[2024-07-15 14:39] LABS: Estimated Average Glucose 103 mg/dL; Hemoglobin A1C 129.2073 umol/L; Hemoglobin A1c % 5.2 % (<6.0)
[2024-07-15] MEDS: hydrOXYzine HCL 25 MG TABLET PO (17:00)
[2024-07-15 20:00] VITALS: BP 117/73; PULSE 74; TEMP 36.9; O2SAT 96
[2024-07-15] MEDS: Lithium Carbonate ER 300 MG TABLET.ER 600 MG PO (20:21)
[2024-07-15] MEDS: cloZAPine 25 MG TABLET PO (20:22)
[2024-07-15] MEDS: traZODone HCL 50 MG TABLET PO (21:39)
--- NOTE | 2024-07-16 07:31 | P.PNPSI_ITS ---
Subjective Subjective Date of Service: 07/16/24 Reason For Visit: UNSPECIFIED SCHIZOPHRENIA SPECTRUM Interim History: Pt seen, discussed with the team Pt presents with some confusion, internal preoccupation, poor appetite. Med compliance is poor To team, denies being himself. Isolative. Slept per team ~5 hours Attempts to reassure pt regarding safety, treatment he is not able to internalize at this time. Medication Compliance: Yes (07/15) Side effects from medications: No Attending Groups: No Review of Systems Acute medical concerns: No Medical Review of Systems: unchanged Review of Systems Review of Systems Yes Unobtainable due to mental status Mental Status Exam Mental Status Exam Patient Appearance: Fatigued Patient Orientation: Person and Place Level of Consciousness: Awake Patient Behavior: Guarded and Suspicious Mood Description: Withdrawn Affect Description: Withdrawn Patient Cognition Impaired: No Speech Pattern: Impoverished and Spontaneous Speech Delusions: Present Thought Process: Distracted and Rumination Thought Content: positive for Perseveration and positive for Thought Blocking Judgement: Poor Diagnostics Vital Signs (24Hr): Vital Signs - 24 hr 07/15/24 08:06 07/15/24 20:00 Temperature 98.5 F 98.4 F Pulse Rate 70 74 Blood Pressure 131/78 117/73 Pulse Oximetry 96 96 Oxygen Delivery Method Room Air Room Air Labs 07/15/24 13:18 07/15/24 13:18 Labs: Laboratory Results - last 48 hr 07/15/24 07/15/24 13:18 13:18 WBC 7.1 RBC 5.10 Hgb 14.7 Hct 43.7 MCV 85.7 MCH 28.8 MCHC 33.6 RDW 12.9 Plt Count 249 MPV 11.9 Immature Gran % (Auto) 0.3 Neut % (Auto) 69.2 Lymph % (Auto) 18.4 L [place] % (Auto) 9.8 Eos % (Auto) 1.7 Baso % (Auto) 0.6 Lymph # (Auto) 1.3 [place] # (Auto) 0.7 Eos # (Auto) 0.1 Baso # (Auto) 0.0 Abs Immat Gran (auto) 0.02 Absolute Neuts (auto) 4.9 5.0 Absolute Nucleated RBC 0.000 Nucleated RBC % (auto) 0.0 Sodium 135 Potassium 3.8 Chloride 101 Carbon Dioxide 25 Anion Gap 13 BUN 15 Creatinine 0.92 Estim Creat Clear Calc TNP Estimated GFR > 60 Random Glucose 93 Estimat Average Glucose 103 Hemoglobin A1c % 5.2 Calcium 9.8 Magnesium 2.3 Total Bilirubin 0.7 AST 20 ALT 16 Alkaline Phosphatase 83 Total Protein 8.4 H Albumin 4.9 Triglycerides 72 Cholesterol 192 LDL Cholesterol, Calc 148 H HDL Cholesterol 30 L TSH 3.08 Free T4 1.21 Medications Medications Current Medications Acetaminophen (Acetaminophen 325 Mg Tablet) 650 mg PO Q6H PRN PRN Reason: Headache/Pain, Scale 1-10 Al Hydroxide/Mg Hydroxide (Magnesium Hydrox/Alum Hydrox 30 Ml Oral.Susp) 30 ml PO Q6H PRN PRN Reason: Heartburn/Nausea Clonidine HCl (Clonidine Hcl 0.1 Mg Tablet) 0.1 mg PO BID PRN; Protocol PRN Reason: anxiety Clonidine HCl (Clonidine Hcl 0.1 Mg Tablet) 0.1 mg PO Q4H PRN; Protocol PRN Reason: moderate anxiety Clozapine (Clozapine 25 Mg Tablet) 25 mg PO BEDTIME [facility] Last Admin: 07/15/24 20:22 Dose: 25 mg Folic Acid (Folic Acid 1 Mg Tablet) 1 mg PO DAILY [facility] Last Admin: 07/15/24 09:02 Dose: Not Given Hydroxyzine HCl (Hydroxyzine Hcl 25 Mg Tablet) 25 mg PO Q6H PRN PRN Reason: mild anxiety Last Admin: 07/15/24 17:00 Dose: 25 mg [place] Carbonate ([place] Carbonate Er 300 Mg Tablet.Er) 600 mg PO BEDTIME [facility] Last Admin: 07/15/24 20:21 Dose: 600 mg Loratadine (Loratadine 10 Mg Tablet) 10 mg PO DAILY [facility] Last Admin: 07/15/24 09:02 Dose: Not Given Magnesium Hydroxide (Milk Of Magnesia 30 Ml Oral.Susp) 30 ml PO DAILY PRN PRN Reason: Constipation Multivitamins/Vitamin C (Multivitamin Tablet) 1 tab PO DAILY [facility] Last Admin: 07/15/24 09:02 Dose: Not Given Nicotine Polacrilex (Nicotine Polacrilex 2 Mg Gum) 4 mg BUCCAL Q2H PRN PRN Reason: Nicotine Cravings Thiamine HCl (Thiamine Hcl 100 Mg Tablet) 100 mg PO DAILY [facility] Last Admin: 07/15/24 09:03 Dose: Not Given Trazodone HCl (Trazodone Hcl 50 Mg Tablet) 50 mg PO BEDTIME MRX1 PRN PRN Reason: Insomnia Last Admin: 07/15/24 21:39 Dose: 50 mg Allergies Allergies Allergy/AdvReac Type Severity Reaction Status Date / Time No Known Allergies Allergy Verified 07/14/24 16:16 Assessment & Plan Assessment & Plan (1) Schizophrenia: Status: Acute Code(s): F20.9 - Schizophrenia, unspecified Plan HPI: Pt is a 23 yo male with history of schizophrenia (possibly schizoaffective disorder) who presents for worsening psychotic symptoms at the behest of his family who report patient has not been eating, in the face of being off medication. Patient is a limited historian as he is significantly internally preoccupied and with significant thought blocking. Patient acknowledges that he has auditory hallucinations and says don't know what's me and what's not. On inquiry about AH He nods yes to AH telling him to not eat don't drink., On the unit he still eating and drinking, which he says is because he is trying not to listen to voices... i see other people do stuff...their not not doing things... Patient denies SI but says sometimes he feels like dying but I just haven't... He denies past suicide attempts saying he ends up restricted says he is not allowed to hurt himself. Regarding medications, patient says that Invega does help but he then says (in between long silences from thought blocking) I thought medication gave control to the voices... To run your own thoughts... I am not looking for anything... I ran away from emotions... Patient endorses insomnia and says he can not sleep. Regarding paranoid ideations, patient says i never had privacy for a long time...if i new there was a no privacy i would have acted differently, but i guess this was a test... Pt says everyone is invading my privacy... and says random people know about him...How? pt says he just knows..other people tell him stuff...i don't know what the sources is... Pt's says he thinks television script writer and SW are included in this.. formulation; clinical reasoning: floridly psychotic; almost no insight. Discussed meds and he says he'll try Clozapine; does not want to get back on Invega (also, father reported says Invega sustenna 234mg worked well but for only 2 weeks). He says he can't sleep; will restart [place] (most recently prescribed) significant negative symptoms PLAN: CV q15mn Start Clozapine 25mg bedtime (ANC wnl) [place] ER 600mg qhs 07/16: Continue regime Reason for continued inpatient stay Substantial Risk for: rapid decompensation Time Spent With Patient Time: Total time managing care of this patient today ____ minutes.
[2024-07-16 07:57] VITALS: BP 113/80; PULSE 90; RESP 18; TEMP 36.6; O2SAT 98
--- NOTE | 2024-07-16 17:00 | PC.NURSE ---
Pt signed 3 day on 07/15. Up on 07/19. Witnessed by staff member Bean. Updated in legals.
[2024-07-16 19:37] VITALS: BP 124/84; PULSE 102; TEMP 37.1; O2SAT 97
[2024-07-16] MEDS: cloZAPine 25 MG TABLET PO (20:21)
[2024-07-16] MEDS: Lithium Carbonate ER 300 MG TABLET.ER 600 MG PO (20:21)
--- NOTE | 2024-07-17 05:49 | HO.PSYCHPN ---
Subjective Subjective Date of Service: 07/17/24 Reason For Visit: UNSPECIFIED SCHIZOPHRENIA SPECTRUM Interim History: Pt seen, discussed with team. Pt asks team for prn Haldol which is ordered. Clozapine increased to 50 mg HS this evening. Medication Compliance: Intermittent Review of Systems Review of Systems Yes Unobtainable due to mental status Mental Status Exam Mental Status Exam Patient Appearance: Fatigued Patient Orientation: Person and Place Level of Consciousness: Awake Patient Behavior: Guarded and Suspicious Mood Description: Withdrawn Affect Description: Withdrawn Patient Cognition Impaired: No Speech Pattern: Impoverished and Spontaneous Speech Delusions: Present Thought Process: Distracted and Rumination Thought Content: positive for Perseveration and positive for Thought Blocking Judgement: Poor Diagnostics Vital Signs (24Hr): Vital Signs - 24 hr 07/16/24 07:57 07/16/24 19:37 Temperature 97.8 F 98.8 F Pulse Rate 90 102 H Respiratory Rate 18 Blood Pressure 113/80 124/84 Pulse Oximetry 98 97 Oxygen Delivery Method Room Air Room Air Labs 07/15/24 13:18 07/15/24 13:18 Labs: Laboratory Results - last 48 hr 07/15/24 07/15/24 13:18 13:18 WBC 7.1 RBC 5.10 Hgb 14.7 Hct 43.7 MCV 85.7 MCH 28.8 MCHC 33.6 RDW 12.9 Plt Count 249 MPV 11.9 Immature Gran % (Auto) 0.3 Neut % (Auto) 69.2 Lymph % (Auto) 18.4 L [place] % (Auto) 9.8 Eos % (Auto) 1.7 Baso % (Auto) 0.6 Lymph # (Auto) 1.3 [place] # (Auto) 0.7 Eos # (Auto) 0.1 Baso # (Auto) 0.0 Abs Immat Gran (auto) 0.02 Absolute Neuts (auto) 4.9 5.0 Absolute Nucleated RBC 0.000 Nucleated RBC % (auto) 0.0 Sodium 135 Potassium 3.8 Chloride 101 Carbon Dioxide 25 Anion Gap 13 BUN 15 Creatinine 0.92 Estim Creat Clear Calc TNP Estimated GFR > 60 Random Glucose 93 Estimat Average Glucose 103 Hemoglobin A1c % 5.2 Calcium 9.8 Magnesium 2.3 Total Bilirubin 0.7 AST 20 ALT 16 Alkaline Phosphatase 83 Total Protein 8.4 H Albumin 4.9 Triglycerides 72 Cholesterol 192 LDL Cholesterol, Calc 148 H HDL Cholesterol 30 L TSH 3.08 Free T4 1.21 Medications Medications Current Medications Acetaminophen (Acetaminophen 325 Mg Tablet) 650 mg PO Q6H PRN PRN Reason: Headache/Pain, Scale 1-10 Al Hydroxide/Mg Hydroxide (Magnesium Hydrox/Alum Hydrox 30 Ml Oral.Susp) 30 ml PO Q6H PRN PRN Reason: Heartburn/Nausea Clonidine HCl (Clonidine Hcl 0.1 Mg Tablet) 0.1 mg PO BID PRN; Protocol PRN Reason: anxiety Clonidine HCl (Clonidine Hcl 0.1 Mg Tablet) 0.1 mg PO Q4H PRN; Protocol PRN Reason: moderate anxiety Clozapine (Clozapine 25 Mg Tablet) 25 mg PO BEDTIME [facility] Last Admin: 07/16/24 20:21 Dose: 25 mg Folic Acid (Folic Acid 1 Mg Tablet) 1 mg PO DAILY [facility] Last Admin: 07/16/24 08:48 Dose: Not Given Hydroxyzine HCl (Hydroxyzine Hcl 25 Mg Tablet) 25 mg PO Q6H PRN PRN Reason: mild anxiety Last Admin: 07/15/24 17:00 Dose: 25 mg [place] Carbonate ([place] Carbonate Er 300 Mg Tablet.Er) 600 mg PO BEDTIME [facility] Last Admin: 07/16/24 20:21 Dose: 600 mg Loratadine (Loratadine 10 Mg Tablet) 10 mg PO DAILY [facility] Last Admin: 07/16/24 08:48 Dose: Not Given Magnesium Hydroxide (Milk Of Magnesia 30 Ml Oral.Susp) 30 ml PO DAILY PRN PRN Reason: Constipation Multivitamins/Vitamin C (Multivitamin Tablet) 1 tab PO DAILY [facility] Last Admin: 07/16/24 08:48 Dose: Not Given Nicotine Polacrilex (Nicotine Polacrilex 2 Mg Gum) 4 mg BUCCAL Q2H PRN PRN Reason: Nicotine Cravings Thiamine HCl (Thiamine Hcl 100 Mg Tablet) 100 mg PO DAILY [facility] Last Admin: 07/16/24 08:49 Dose: Not Given Trazodone HCl (Trazodone Hcl 50 Mg Tablet) 50 mg PO BEDTIME MRX1 PRN PRN Reason: Insomnia Last Admin: 07/15/24 21:39 Dose: 50 mg Allergies Allergies Allergy/AdvReac Type Severity Reaction Status Date / Time No Known Allergies Allergy Verified 07/14/24 16:16 Assessment & Plan Assessment & Plan (1) Schizophrenia: Status: Acute Code(s): F20.9 - Schizophrenia, unspecified Plan HPI: Pt is a 23 yo male with history of schizophrenia (possibly schizoaffective disorder) who presents for worsening psychotic symptoms at the behest of his family who report patient has not been eating, in the face of being off medication. Patient is a limited historian as he is significantly internally preoccupied and with significant thought blocking. Patient acknowledges that he has auditory hallucinations and says don't know what's me and what's not. On inquiry about AH He nods yes to AH telling him to not eat don't drink., On the unit he still eating and drinking, which he says is because he is trying not to listen to voices... i see other people do stuff...their not not doing things... Patient denies SI but says sometimes he feels like dying but I just haven't... He denies past suicide attempts saying he ends up restricted says he is not allowed to hurt himself. Regarding medications, patient says that Invega does help but he then says (in between long silences from thought blocking) I thought medication gave control to the voices... To run your own thoughts... I am not looking for anything... I ran away from emotions... Patient endorses insomnia and says he can not sleep. Regarding paranoid ideations, patient says i never had privacy for a long time...if i new there was a no privacy i would have acted differently, but i guess this was a test... Pt says everyone is invading my privacy... and says random people know about him...How? pt says he just knows..other people tell him stuff...i don't know what the sources is... Pt's says he thinks senior copywriter and SW are included in this.. formulation; clinical reasoning: floridly psychotic; almost no insight. Discussed meds and he says he'll try Clozapine; does not want to get back on Invega (also, father reported says Invega sustenna 234mg worked well but for only 2 weeks). He says he can't sleep; will restart [place] (most recently prescribed) significant negative symptoms PLAN: CV q15mn Start Clozapine 25mg bedtime (ANC wnl) [place] ER 600mg qhs 07/17 Haldol prn (Pt request) Increase Clozapine to 50 mg HS (has tolerated 2 doses of 25 mg) Reason for continued inpatient stay Substantial Risk for: rapid decompensation Time Spent With Patient Time: Total time managing care of this patient today ____ minutes.
[2024-07-17 08:00] VITALS: BP 113/67; PULSE 59; RESP 18; TEMP 36.4; O2SAT 98
[2024-07-17] MEDS: Loratadine 10 MG TABLET PO (08:33)
[2024-07-17] MEDS: Multivitamin TABLET 1 TAB PO (08:33)
[2024-07-17] MEDS: Thiamine HCL 100 MG TABLET PO (08:33)
[2024-07-17] MEDS: Folic Acid 1 MG TABLET PO (08:33)
[2024-07-17] MEDS: Nicotine Polacrilex 2 MG GUM 4 MG BUCCAL ×2 (16:17→19:08)
[2024-07-17] MEDS: hydrOXYzine HCL 25 MG TABLET PO (16:32)
[2024-07-17] MEDS: HaloperidoL 5 MG TABLET PO (16:51)
[2024-07-17 19:08] VITALS: BP 131/81
[2024-07-17] MEDS: cloNIDine HCL 0.1 MG TABLET PO (19:08)
[2024-07-17 19:49] VITALS: BP 131/81; PULSE 85; TEMP 36.8; O2SAT 98
[2024-07-17] MEDS: Lithium Carbonate ER 300 MG TABLET.ER 600 MG PO (20:44)
[2024-07-17] MEDS: cloZAPine 25 MG TABLET 50 MG PO (20:44)
[2024-07-18] MEDS: Thiamine HCL 100 MG TABLET PO (08:57)
[2024-07-18] MEDS: Loratadine 10 MG TABLET PO (08:57)
[2024-07-18] MEDS: Multivitamin TABLET 1 TAB PO (08:57)
[2024-07-18] MEDS: Folic Acid 1 MG TABLET PO (08:57)
--- NOTE | 2024-07-18 09:34 | P.PNPSI_ITS ---
Subjective Subjective Date of Service: 07/18/24 Reason For Visit: UNSPECIFIED SCHIZOPHRENIA SPECTRUM Interim History: met with patient; discussed with team; reviewed chart pt clearly doing better, talking freely, in full sentences, no latency. Pt says he's feeling differently then on admission; he remembers that it was hard to talk and now, no longer. Denies AH; he says last week, it was not voices but he was just hearing what different people were saying; he is not hearing that now. Pt reports he is now sleeping better; regarding other people, strangers knowing about him, he no longer thinks about this. regarding aftercare plans, patient says he does not want to go to [place], saying he already did a program recently and does not need to learn more coping skills; he rather do an IOP here which he says has helped in the past. He says he'll talk with grandma about it. Pt placed a 3 day notice pt eating, drinking and sleeping well telegraphic typewriter operator chief talked with mom who was initially skeptical about clozapine but after discussion she agrees with treatment plan Mental Status Exam Mental Status Exam Narrative: Pt is alert and oriented; behavior is cooperative, still a little guarded but overall friendly and calm; patient is not in distress; dressed in casual attire with disheveled; mood is described as good and affect congruent; eye contact appropriate; Speech is normal rate, volume and prosody and not pressured; no psychomotor agitation/retardation present; thought process is organized and goal directed; Thought content is on tx, discharge; otherwise pertinent to relevant topics; no delusional content expressed though some paranoid ideations may linger; denies any SI/HI. Denies AVH and pt mostly does not appear internally preoccupied Patients insight and judgment much improved, fair. Diagnostics Vital Signs (24Hr): Vital Signs - 24 hr 07/17/24 19:08 07/17/24 19:49 Temperature 98.3 F Pulse Rate 85 Blood Pressure 131/81 131/81 Pulse Oximetry 98 Oxygen Delivery Method Room Air Labs 07/15/24 13:18 07/15/24 13:18 Medications Medications Current Medications Acetaminophen (Acetaminophen 325 Mg Tablet) 650 mg PO Q6H PRN PRN Reason: Headache/Pain, Scale 1-10 Al Hydroxide/Mg Hydroxide (Magnesium Hydrox/Alum Hydrox 30 Ml Oral.Susp) 30 ml PO Q6H PRN PRN Reason: Heartburn/Nausea Clonidine HCl (Clonidine Hcl 0.1 Mg Tablet) 0.1 mg PO Q4H PRN; Protocol PRN Reason: moderate anxiety Last Admin: 07/17/24 19:08 Dose: 0.1 mg Clozapine (Clozapine 25 Mg Tablet) 50 mg PO BEDTIME [facility] Last Admin: 07/17/24 20:44 Dose: 50 mg Folic Acid (Folic Acid 1 Mg Tablet) 1 mg PO DAILY [facility] Last Admin: 07/18/24 08:57 Dose: 1 mg Haloperidol (Haloperidol 5 Mg Tablet) 5 mg PO TID PRN PRN Reason: agitation, psychosis Last Admin: 07/17/24 16:51 Dose: 5 mg Hydroxyzine HCl (Hydroxyzine Hcl 25 Mg Tablet) 25 mg PO Q6H PRN PRN Reason: mild anxiety Last Admin: 07/17/24 16:32 Dose: 25 mg [place] Carbonate ([place] Carbonate Er 300 Mg Tablet.Er) 600 mg PO BEDTIME [facility] Last Admin: 07/17/24 20:44 Dose: 600 mg Loratadine (Loratadine 10 Mg Tablet) 10 mg PO DAILY [facility] Last Admin: 07/18/24 08:57 Dose: 10 mg Magnesium Hydroxide (Milk Of Magnesia 30 Ml Oral.Susp) 30 ml PO DAILY PRN PRN Reason: Constipation Multivitamins/Vitamin C (Multivitamin Tablet) 1 tab PO DAILY [facility] Last Admin: 07/18/24 08:57 Dose: 1 tab Nicotine Polacrilex (Nicotine Polacrilex 2 Mg Gum) 4 mg BUCCAL Q2H PRN PRN Reason: Nicotine Cravings Last Admin: 07/17/24 19:08 Dose: 4 mg Thiamine HCl (Thiamine Hcl 100 Mg Tablet) 100 mg PO DAILY [facility] Last Admin: 07/18/24 08:57 Dose: 100 mg Trazodone HCl (Trazodone Hcl 50 Mg Tablet) 50 mg PO BEDTIME MRX1 PRN PRN Reason: Insomnia Last Admin: 07/15/24 21:39 Dose: 50 mg Allergies Allergies Allergy/AdvReac Type Severity Reaction Status Date / Time No Known Allergies Allergy Verified 07/14/24 16:16 Assessment & Plan Assessment & Plan (1) Schizophrenia: Status: Acute Code(s): F20.9 - Schizophrenia, unspecified Plan HPI: Pt is a 23 yo male with history of schizophrenia (possibly schizoaffective disorder) who presents for worsening psychotic symptoms at the behest of his family who report patient has not been eating, in the face of being off medication. Patient is a limited historian as he is significantly internally preoccupied and with significant thought blocking. Patient acknowledges that he has auditory hallucinations and says don't know what's me and what's not. On inquiry about AH He nods yes to AH telling him to not eat don't drink., On the unit he still eating and drinking, which he says is because he is trying not to listen to voices... i see other people do stuff...their not not doing things... Patient denies SI but says sometimes he feels like dying but I just haven't... He denies past suicide attempts saying he ends up restricted says he is not allowed to hurt himself. Regarding medications, patient says that Invega does help but he then says (in between long silences from thought blocking) I thought medication gave control to the voices... To run your own thoughts... I am not looking for anything... I ran away from emotions... Patient endorses insomnia and says he can not sleep. Regarding paranoid ideations, patient says i never had privacy for a long time...if i new there was a no privacy i would have acted differently, but i guess this was a test... Pt says everyone is invading my privacy... and says random people know about him...How? pt says he just knows..other people tell him stuff...i don't know what the sources is... Pt's says he thinks telegraphic typewriter operator chief and SW are included in this.. formulation; clinical reasoning: floridly psychotic; almost no insight. Discussed meds and he says he'll try Clozapine; does not want to get back on Invega (also, father reported says Invega sustenna 234mg worked well but for only 2 weeks). He says he can't sleep; will restart [place] (most recently prescribed) significant negative symptoms Hospital course: 07/17 Haldol prn (Pt request) Increase Clozapine to 50 mg HS (has tolerated 2 doses of 25 mg) 5/12 pt clearly doing better, talking freely, in full sentences, no latency. Pt says he's feeling differently then on admission; he remembers that it was hard to talk and now, no longer. Denies AH; he says last week, it was not voices but he was just hearing what different people were saying; he is not hearing that now. Pt reports he is now sleeping better; regarding other people knowing about, he no longer thinks this is true. Still does not have full insight into psychiatric illness, but agrees medication has helped and says will keep taking it regarding aftercare plans, patient says he does not want to go to [place], saying he already did a program recently and does not need to learn more coping skills; he rather do an IOP here which he says has helped in the past. He says he'll talk with grandma about it. Pt placed a 3 day notice -pt eating, drinking and sleeping well -Discussed risks/side-effects of Clozapine which pt understands; he is amenable to weekly blood draws; says it works better than other meds. Agreed with continuing [place] which he is prescribed as outpt (pt has hx of depression and angel luis) -telegraphic typewriter operator chief talked with mom who was initially skeptical about clozapine but after discussion she agrees with treatment plan PLAN: 3day q15mn continue Clozapine 50mg bedtime (ANC wnl) (will leave at 50mg as pt is doing much better) [place] ER 600mg qhs Patient educated on: diagnosis and medication risk/benefits Informed Consent: understands, does not understand and further education needed Reason for continued inpatient stay Substantial Risk for: stable for discharge Time Spent With Patient Time: Total time managing care of this patient today ____ minutes.
[2024-07-18] MEDS: HaloperidoL 5 MG TABLET PO ×2 (13:17→17:26)
[2024-07-18] MEDS: Nicotine Polacrilex 2 MG GUM 4 MG BUCCAL ×2 (13:17→17:20)
[2024-07-18 19:55] VITALS: BP 141/86; PULSE 91; TEMP 36.9; O2SAT 99
[2024-07-18] MEDS: cloZAPine 25 MG TABLET 50 MG PO (20:14)
[2024-07-18] MEDS: Lithium Carbonate ER 300 MG TABLET.ER 600 MG PO (20:14)
[2024-07-18] MEDS: traZODone HCL 50 MG TABLET PO (20:15)
[2024-07-19] MEDS: Folic Acid 1 MG TABLET PO (08:37)
[2024-07-19] MEDS: Loratadine 10 MG TABLET PO (08:37)
[2024-07-19] MEDS: Thiamine HCL 100 MG TABLET PO (08:37)
[2024-07-19] MEDS: Multivitamin TABLET 1 TAB PO (08:37)
[2024-07-19] MEDS: HaloperidoL 5 MG TABLET PO (14:31)
--- NOTE | 2024-07-19 16:19 | P.PNPSI_ITS ---
Subjective Subjective Date of Service: 07/19/24 Reason For Visit: UNSPECIFIED SCHIZOPHRENIA SPECTRUM Interim History: Met with patient; discussed with team Patient denies any psychotic symptoms; grudgingly retracted 3 day notice so as to give time for dispo planning. Patient quite irritable that his mother and grandmother want him to go to a program and [facility]a saying it is not necessary and feels they do not really care about his opinion in the matter. Attempted to do some perspective education however patient lacks insight into his illness and need for hospitalization. He is however willing to continue with clozapine though only wants blood draws every 2 weeks, which is now possible with the relaxed protocols. Mental Status Exam Mental Status Exam Narrative: Pt is alert and oriented; behavior is willing to be cooperative but irritable and a little guarded; in behavioral control; patient is not in distress; dressed in casual attire with disheveled; mood is described as good and affect congruent; eye contact appropriate; Speech is normal rate, volume and prosody and not pressured; no psychomotor agitation/retardation present; thought process is organized and goal directed; Thought content is on tx, discharge; otherwise pertinent to relevant topics; no delusional content expressed though some paranoid ideations may linger; denies any SI/HI. Denies AVH and pt mostly does not appear internally preoccupied Patients insight and judgment much improved, fair. Diagnostics Vital Signs (24Hr): Vital Signs - 24 hr 07/18/24 19:55 Temperature 98.4 F Pulse Rate 91 Blood Pressure 141/86 H Pulse Oximetry 99 Labs 07/15/24 13:18 07/20/24 13:33 Medications Medications Current Medications Acetaminophen (Acetaminophen 325 Mg Tablet) 650 mg PO Q6H PRN PRN Reason: Headache/Pain, Scale 1-10 Al Hydroxide/Mg Hydroxide (Magnesium Hydrox/Alum Hydrox 30 Ml Oral.Susp) 30 ml PO Q6H PRN PRN Reason: Heartburn/Nausea Clonidine HCl (Clonidine Hcl 0.1 Mg Tablet) 0.1 mg PO Q4H PRN; Protocol PRN Reason: moderate anxiety Last Admin: 07/17/24 19:08 Dose: 0.1 mg Clozapine (Clozapine 25 Mg Tablet) 50 mg PO BEDTIME [facility] Last Admin: 07/18/24 20:14 Dose: 50 mg Folic Acid (Folic Acid 1 Mg Tablet) 1 mg PO DAILY [facility] Last Admin: 07/19/24 08:37 Dose: 1 mg Haloperidol (Haloperidol 5 Mg Tablet) 5 mg PO TID PRN PRN Reason: agitation, psychosis Last Admin: 07/19/24 14:31 Dose: 5 mg Hydroxyzine HCl (Hydroxyzine Hcl 25 Mg Tablet) 25 mg PO Q6H PRN PRN Reason: mild anxiety Last Admin: 07/17/24 16:32 Dose: 25 mg [place] Carbonate ([place] Carbonate Er 300 Mg Tablet.Er) 600 mg PO BEDTIME [facility] Last Admin: 07/18/24 20:14 Dose: 600 mg Loratadine (Loratadine 10 Mg Tablet) 10 mg PO DAILY [facility] Last Admin: 07/19/24 08:37 Dose: 10 mg Magnesium Hydroxide (Milk Of Magnesia 30 Ml Oral.Susp) 30 ml PO DAILY PRN PRN Reason: Constipation Multivitamins/Vitamin C (Multivitamin Tablet) 1 tab PO DAILY [facility] Last Admin: 07/19/24 08:37 Dose: 1 tab Nicotine Polacrilex (Nicotine Polacrilex 2 Mg Gum) 4 mg [place]CC[place] Q2H PRN PRN Reason: Nicotine Cravings Last Admin: 07/18/24 17:20 Dose: 4 mg Thiamine HCl (Thiamine Hcl 100 Mg Tablet) 100 mg PO DAILY [facility] Last Admin: 07/19/24 08:37 Dose: 100 mg Trazodone HCl (Trazodone Hcl 50 Mg Tablet) 50 mg PO BEDTIME MRX1 PRN PRN Reason: Insomnia Last Admin: 07/18/24 20:15 Dose: 50 mg Allergies Allergies Allergy/AdvReac Type Severity Reaction Status Date / Time No Known Allergies Allergy Verified 07/14/24 16:16 Assessment & Plan Assessment & Plan (1) Schizophrenia: Status: Acute Code(s): F20.9 - Schizophrenia, unspecified Plan HPI: Pt is a 23 yo male with history of schizophrenia (possibly schizoaffective disorder) who presents for worsening psychotic symptoms at the behest of his family who report patient has not been eating, in the face of being off medication. Patient is a limited historian as he is significantly internally preoccupied and with significant thought blocking. Patient acknowledges that he has auditory hallucinations and says don't know what's me and what's not. On inquiry about He nods yes to telling him to not eat don't drink., On the unit he still eating and drinking, which he says is because he is trying not to listen to voices... i see other people do stuff...their not not doing things... Patient denies SI but says sometimes he feels like dying but I just haven't... He denies past suicide attempts saying he ends up restricted says he is not allowed to hurt himself. Regarding medications, patient says that Invega does help but he then says (in between long silences from thought blocking) I thought medication gave control to the voices... To run your own thoughts... I am not looking for anything... I ran away from emotions... Patient endorses insomnia and says he can not sleep. Regarding paranoid ideations, patient says i never had privacy for a long time...if i new there was a no privacy i would have acted differently, but i guess this was a test... Pt says everyone is invading my privacy... and says random people know about him...How? pt says he just knows..other people tell him stuff...i don't know what the sources is... Pt's says he thinks junior copywriter and SW are included in this.. formulation; clinical reasoning: floridly psychotic; almost no insight. Discussed meds and he says he'll try Clozapine; does not want to get back on Invega (also, father reported says Invega sustenna 234mg worked well but for only 2 weeks). He says he can't sleep; will restart [place] (most recently prescribed) significant negative symptoms Hospital course: 07/17 Haldol prn (Pt request) Increase Clozapine to 50 mg HS (has tolerated 2 doses of 25 mg) 07/18 pt clearly doing better, talking freely, in full sentences, no latency. Pt says he's feeling differently then on admission; he remembers that it was hard to talk and now, no longer. Denies AH; he says last week, it was not voices but he was just hearing what different people were saying; he is not hearing that now. Pt reports he is now sleeping better; regarding other people knowing about, he no longer thinks this is true. Still does not have full insight into psychiatric illness, but agrees medication has helped and says will keep taking it regarding aftercare plans, patient says he does not want to go to [place], saying he already did a program recently and does not need to learn more coping skills; he rather do an IOP here which he says has helped in the past. He says he'll talk with grandma about it. Pt placed a 3 day notice -pt eating, drinking and sleeping well -Discussed risks/side-effects of Clozapine which pt understands; he is amenable to weekly blood draws; says it works better than other meds. Agreed with continuing [place] which he is prescribed as outpt (pt has hx of depression and angel luis) -junior copywriter talked with mom who was initially skeptical about clozapine but after discussion she agrees with treatment plan 07/19 Patient denies any psychotic symptoms; grudgingly retracted 3 day notice so as to give time for dispo planning. Patient quite irritable that his mother and grandmother want him to go to a program and [facility] saying it is not necessary and feels they do not really care about his opinion in the matter. Attempted to do some perspective education however patient lacks insight into his illness and need for hospitalization. He is however willing to continue with clozapine though only wants blood draws every 2 weeks, which is now possible with the relaxed protocols. PLAN: cv q15mn continue Clozapine 50mg bedtime (ANC wnl) (will leave at 50mg as pt is doing much better) [place] ER 600mg qhs Labs ordered Patient educated on: diagnosis and medication risk/benefits Informed Consent: understands Reason for continued inpatient stay Substantial Risk for: stable for discharge Time Spent With Patient Time: Total time managing care of this patient today ____ minutes.
[2024-07-19 17:02] VITALS: BP 146/87
[2024-07-19] MEDS: cloNIDine HCL 0.1 MG TABLET PO (17:02)
[2024-07-19] MEDS: Nicotine Polacrilex 2 MG GUM 4 MG BUCCAL (17:03)
[2024-07-19] MEDS: traZODone HCL 50 MG TABLET PO (21:14)
[2024-07-19] MEDS: Lithium Carbonate ER 300 MG TABLET.ER 600 MG PO (21:14)
[2024-07-19] MEDS: cloZAPine 25 MG TABLET 50 MG PO (21:14)
[2024-07-20] MEDS: Loratadine 10 MG TABLET PO (08:59)
[2024-07-20] MEDS: Thiamine HCL 100 MG TABLET PO (08:59)
[2024-07-20] MEDS: Folic Acid 1 MG TABLET PO (08:59)
[2024-07-20] MEDS: Acetaminophen 325 MG TABLET 650 MG PO (08:59)
--- NOTE | 2024-07-20 10:07 | P.PNPSI_ITS ---
Subjective Subjective Date of Service: 08/10/24 Reason For Visit: UNSPECIFIED SCHIZOPHRENIA SPECTRUM Interim History: Met with patient; discussed with team Patient reports that he is doing well and is more pleasant. Asks about medications and what they are for and typewriter ribbon winder provides education. Front Office Secretary inquired if patient understands his diagnosis and he said that he knows the medications are to help him with his episodes and false beliefs.. Patient feels ready for discharge and thinks typewriter ribbon winder for the help received. Mental Status Exam Mental Status Exam Narrative: Pt is alert and oriented; behavior is cooperative, friendly and calm; patient is not in distress; dressed in casual attire with unkempt hair but adequate hygiene; mood is described as good and affect congruent; eye contact appropriate; Speech is normal rate, volume and prosody and not pressured; no psychomotor agitation/retardation present; thought process is organized and goal directed; Thought content is on tx; otherwise pertinent to relevant topics and without any delusional content, paranoid ideations or grandiosity; denies any SI/HI. Denies AVH and there is no evidence of perceptual disturbance. Patients insight and judgment appear intact. Diagnostics Vital Signs (24Hr): Vital Signs - 24 hr 07/19/24 17:02 Blood Pressure 146/87 H Labs 07/15/24 13:18 07/20/24 13:33 Medications Medications Current Medications Acetaminophen (Acetaminophen 325 Mg Tablet) 650 mg PO Q6H PRN PRN Reason: Headache/Pain, Scale 1-10 Last Admin: 07/20/24 08:59 Dose: 650 mg Al Hydroxide/Mg Hydroxide (Magnesium Hydrox/Alum Hydrox 30 Ml Oral.Susp) 30 ml PO Q6H PRN PRN Reason: Heartburn/Nausea Clonidine HCl (Clonidine Hcl 0.1 Mg Tablet) 0.1 mg PO Q4H PRN; Protocol PRN Reason: moderate anxiety Last Admin: 07/19/24 17:02 Dose: 0.1 mg Clozapine (Clozapine 25 Mg Tablet) 50 mg PO BEDTIME TIKI Last Admin: 07/19/24 21:14 Dose: 50 mg Folic Acid (Folic Acid 1 Mg Tablet) 1 mg PO DAILY TIKI Last Admin: 07/20/24 08:59 Dose: 1 mg Haloperidol (Haloperidol 5 Mg Tablet) 5 mg PO TID PRN PRN Reason: agitation, psychosis Last Admin: 07/19/24 14:31 Dose: 5 mg Hydroxyzine HCl (Hydroxyzine Hcl 25 Mg Tablet) 25 mg PO Q6H PRN PRN Reason: mild anxiety Last Admin: 07/17/24 16:32 Dose: 25 mg [place] Carbonate ([place] Carbonate Er 300 Mg Tablet.Er) 600 mg PO BEDTIME TIKI Last Admin: 07/19/24 21:14 Dose: 600 mg Loratadine (Loratadine 10 Mg Tablet) 10 mg PO DAILY [facility] Last Admin: 07/20/24 08:59 Dose: 10 mg Magnesium Hydroxide (Milk Of Magnesia 30 Ml Oral.Susp) 30 ml PO DAILY PRN PRN Reason: Constipation Multivitamins/Vitamin C (Multivitamin Tablet) 1 tab PO DAILY [facility] Last Admin: 07/19/24 08:37 Dose: 1 tab Nicotine Polacrilex (Nicotine Polacrilex 2 Mg Gum) 4 mg BUCCAL Q2H PRN PRN Reason: Nicotine Cravings Last Admin: 07/19/24 17:03 Dose: 4 mg Thiamine HCl (Thiamine Hcl 100 Mg Tablet) 100 mg PO DAILY [facility] Last Admin: 07/20/24 08:59 Dose: 100 mg Trazodone HCl (Trazodone Hcl 50 Mg Tablet) 50 mg PO BEDTIME MRX1 PRN PRN Reason: Insomnia Last Admin: 07/19/24 21:14 Dose: 50 mg Allergies Allergies Allergy/AdvReac Type Severity Reaction Status Date / Time No Known Allergies Allergy Verified 07/14/24 16:16 Assessment & Plan Assessment & Plan (1) Schizophrenia: Status: Acute Code(s): F20.9 - Schizophrenia, unspecified Plan HPI: Pt is a 23 yo male with history of schizophrenia (possibly schizoaffective disorder) who presents for worsening psychotic symptoms at the behest of his family who report patient has not been eating, in the face of being off medication. Patient is a limited historian as he is significantly internally preoccupied and with significant thought blocking. Patient acknowledges that he has auditory hallucinations and says don't know what's me and what's not. On inquiry about AH He nods yes to AH telling him to not eat don't drink., On the unit he still eating and drinking, which he says is because he is trying not to listen to voices... i see other people do stuff...their not not doing things... Patient denies SI but says sometimes he feels like dying but I just haven't... He denies past suicide attempts saying he ends up restricted says he is not allowed to hurt himself. Regarding medications, patient says that Invega does help but he then says (in between long silences from thought blocking) I thought medication gave control to the voices... To run your own thoughts... I am not looking for anything... I ran away from emotions... Patient endorses insomnia and says he can not sleep. Regarding paranoid ideations, patient says i never had privacy for a long time...if i new there was a no privacy i would have acted differently, but i guess this was a test... Pt says everyone is invading my privacy... and says random people know about him...How? pt says he just knows..other people tell him stuff...i don't know what the sources is... Pt's says he thinks typewriter ribbon winder and SW are included in this.. formulation; clinical reasoning: floridly psychotic; almost no insight. Discussed meds and he says he'll try Clozapine; does not want to get back on Invega (also, father reported says Invega sustenna 234mg worked well but for only 2 weeks). He says he can't sleep; will restart [place] (most recently prescribed) significant negative symptoms Hospital course: 07/17 Haldol prn (Pt request) Increase Clozapine to 50 mg HS (has tolerated 2 doses of 25 mg) 07/18 pt clearly doing better, talking freely, in full sentences, no latency. Pt says he's feeling differently then on admission; he remembers that it was hard to talk and now, no longer. Denies AH; he says last week, it was not voices but he was just hearing what different people were saying; he is not hearing that now. Pt reports he is now sleeping better; regarding other people knowing about, he no longer thinks this is true. Still does not have full insight into psychiatric illness, but agrees medication has helped and says will keep taking it regarding aftercare plans, patient says he does not want to go to [place], saying he already did a program recently and does not need to learn more coping skills; he rather do an IOP here which he says has helped in the past. He says he'll talk with grandma about it. Pt placed a 3 day notice -pt eating, drinking and sleeping well -Discussed risks/side-effects of Clozapine which pt understands; he is amenable to weekly blood draws; says it works better than other meds. Agreed with continuing [place] which he is prescribed as outpt (pt has hx of depression and angel luis) -typewriter ribbon winder talked with mom who was initially skeptical about clozapine but after discussion she agrees with treatment plan 07/19 Patient denies any psychotic symptoms; grudgingly retracted 3 day notice so as to give time for dispo planning. Patient quite irritable that his mother and grandmother want him to go to a program and Berta saying it is not necessary and feels they do not really care about his opinion in the matter. Attempted to do some perspective education however patient lacks insight into his illness and need for hospitalization. He is however willing to continue with clozapine though only wants blood draws every 2 weeks, which is now possible with the relaxed protocols. 07/20 Patient reports that he is doing well and is more pleasant. Asks about medications and what they are for and typewriter ribbon winder provides education. Front Office Secretary inquired if patient understands his diagnosis and he said that he knows the medications are to help him with his episodes and false beliefs.. Patient feels ready for discharge and thinks typewriter ribbon winder for the help received. Patient is stable and at baseline. Good mood and with improved insight having an adequate understanding of his psychiatric illness and need for medication. Patient is future oriented. He is not in imminent risk for harm to self or others and appropriate to return to the community for treatment. Request for discharge honored PLAN: cv [id number] continue Clozapine 50mg bedtime (ANC wnl) (will leave at 50mg as pt is doing much better) [place] ER 600mg qhs Labs ordered Patient educated on: diagnosis and medication risk/benefits Informed Consent: understands Reason for continued inpatient stay Substantial Risk for: stable for discharge Time Spent With Patient Time: Total time managing care of this patient today ____ minutes.
[2024-07-20] MEDS: HaloperidoL 5 MG TABLET PO ×2 (10:30→16:35)
[2024-07-20] MEDS: Nicotine Polacrilex 2 MG GUM 4 MG BUCCAL ×3 (13:01→18:23)
[2024-07-20 13:43] LABS: Neut%MD 70.6 %; Neutrophils Absolute Auto 5.3 x10*3/uL (2.0-8.3); WBCANC 7.5 X10*3/uL
[2024-07-20 13:55] LABS: Lithium 0.18 mmol/L (0.60-1.20)
[2024-07-20 14:00] LABS: Anion Gap 13 (12-20); Blood Urea Nitrogen 7 mg/dL (9-16); Calcium 9.3 mg/dL (8.4-10.2); Carbon Dioxide 21 mmol/L (22-29); Chloride 109 mmol/L (96-108); Estimated Glomerular Filt Rate > 60; Glucose Random 109 mg/dL (60-115); Sodium 139 mmol/L (135-145)
[2024-07-20] MEDS: Multivitamin TABLET 1 TAB PO (14:51)
[2024-07-20] MEDS: hydrOXYzine HCL 25 MG TABLET PO (18:23)
[2024-07-20 20:00] VITALS: BP 145/91; PULSE 109; TEMP 37.6; O2SAT 98
[2024-07-20] MEDS: cloZAPine 25 MG TABLET 50 MG PO (20:09)
[2024-07-20] MEDS: Lithium Carbonate ER 300 MG TABLET.ER 600 MG PO (20:10)
[2024-07-20] MEDS: traZODone HCL 50 MG TABLET PO (20:11)
--- NOTE | 2024-07-20 23:48 | P.DS_ITS ---
DS: Providers Provider Date of Service: 07/21/24 Date of admission: 07/14/24 13:53 Date of discharge: 07/21/24 Primary care physician: Unknown Physician Attending physician on admission: Srini Harris Consults: 07/14/24 21:57 Consult to Hospitalist Routine Comment: Consulting Provider: [facility] Hospitalists Reason For Exam: pt transfer from [facility] to Attending physician on discharge: Srini Harris DS: Diagnosis Discharge Diagnosis (1) Schizophrenia: Status: Acute DS: Medications Discharge Medications Home Medications: Previous Rx's ?Medication ?Instructions ?Recorded clonidine HCl 0.1 mg tablet 0.1 mg PO Q4H PRN moderate Anxiety 07/20/24 30 days #90 tabs clozapine 25 mg tablet 75 mg (3 x 25 mg) PO BEDTIME 30 07/20/24 days #90 tabs hydroxyzine HCl 25 mg tablet 25 mg PO Q6H PRN mild anxiety 30 07/20/24 days #60 tabs lithium carbonate 300 mg 600 mg (2 x 300 mg) PO BEDTIME 30 07/20/24 tablet,extended release days #60 tabs loratadine 10 mg tablet 10 mg PO DAILY 30 days #30 tabs 07/20/24 nicotine (polacrilex) 2 mg gum 2 mg buccal Q2H PRN Nicotine 07/20/24 Cravings 30 days #100 ea trazodone 50 mg tablet 50 mg PO BEDTIME PRN Insomnia 30 07/20/24 days #30 tabs Mental Status Exam Mental Status Exam Narrative: Pt is alert and oriented; behavior is cooperative, friendly and calm; patient is not in distress; dressed in casual attire with unkempt hair but adequate hygiene; mood is described as good and affect congruent; eye contact appropriate; Speech is normal rate, volume and prosody and not pressured; no psychomotor agitation/retardation present; thought process is organized and goal directed; Thought content is on tx; otherwise pertinent to relevant topics and without any delusional content, paranoid ideations or grandiosity; denies any SI/HI. Denies AVH and there is no evidence of perceptual disturbance. Patients insight and judgment appear intact. Data Data Completed and Pending Completed studies during hospitalization [Text1]: 07/15/24 07/15/24 07/20/24 13:18 13:18 13:33 WBC 7.1 RBC 5.10 Hgb 14.7 Hct 43.7 MCV 85.7 MCH 28.8 MCHC 33.6 RDW 12.9 Plt Count 249 MPV 11.9 Immature Gran % (Auto) 0.3 Neut % (Auto) 69.2 Lymph % (Auto) 18.4 L [place] % (Auto) 9.8 Eos % (Auto) 1.7 Baso % (Auto) 0.6 Lymph # (Auto) 1.3 [place] # (Auto) 0.7 Eos # (Auto) 0.1 Baso # (Auto) 0.0 Abs Immat Gran (auto) 0.02 Absolute Neuts (auto) 4.9 5.0 5.3 Absolute Nucleated RBC 0.000 Nucleated RBC % (auto) 0.0 Sodium 135 139 Potassium 3.8 4.0 Chloride 101 109 H Carbon Dioxide 25 21 L Anion Gap 13 13 BUN 15 7 L Creatinine 0.92 0.70 Estim Creat Clear Calc TNP TNP Estimated GFR > 60 > 60 Random Glucose 93 109 Estimat Average Glucose 103 Hemoglobin A1c % 5.2 Calcium 9.8 9.3 Magnesium 2.3 Total Bilirubin 0.7 AST 20 ALT 16 Alkaline Phosphatase 83 Total Protein 8.4 H Albumin 4.9 Triglycerides 72 Cholesterol 192 LDL Cholesterol, Calc 148 H HDL Cholesterol 30 L TSH 3.08 Free T4 1.21 Clozapine Pending Norclozapine Pending [place] 0.18 L DS: Summary Hospital Course Hospital Course: HPI: Pt is a 23 yo male with history of schizophrenia (possibly schizoaffective disorder) who presents for worsening psychotic symptoms at the behest of his family who report patient has not been eating, in the face of being off medication. Patient is a limited historian as he is significantly internally preoccupied and with significant thought blocking. Patient acknowledges that he has auditory hallucinations and says don't know what's me and what's not. On inquiry about AH He nods yes to telling him to not eat don't drink., On the unit he still eating and drinking, which he says is because he is trying not to listen to voices... i see other people do stuff...their not not doing things... Patient denies SI but says sometimes he feels like dying but I just haven't... He denies past suicide attempts saying he ends up restricted says he is not allowed to hurt himself. Regarding medications, patient says that Invega does help but he then says (in between long silences from thought blocking) I thought medication gave control to the voices... To run your own thoughts... I am not looking for anything... I ran away from emotions... Patient endorses insomnia and says he can not sleep. Regarding paranoid ideations, patient says i never had privacy for a long time...if i new there was a no privacy i would have acted differently, but i guess this was a test... Pt says everyone is invading my privacy... and says random people know about him...How? pt says he just knows..other people tell him stuff...i don't know what the sources is... Pt's says he thinks telegraphic typewriter repairer and SW are included in this.. Hospital course/formulation/clinical reasoning: On admission patient presents floridly psychotic; with significantly latency speech and near catatonic like symptoms; patient shares about paranoid ideations AH, though having almost no insight.Discussed meds and he says he'll try Clozapine; does not want to get back on Invega (also, father reported says Invega sustenna 234mg worked well but for only 2 weeks). He says he can't sleep; will restart [place] (most recently prescribed) significant negative symptoms On Clozaril, patient quickly started doing much better. All catatonic-like symptoms fully resolved and patient was talking freely, in full sentences, without any latency at all. He was organized in speech and behavior. He was willing to acknowledge that he is feeling better and differently than he 1st did, remembering it was hard to talk and now, no longer. He Denies AH and paranoid ideations seemed to be resolving. Patient also reported sleeping well. Though still struggling with insight into psychiatric illness, he agreed medication has helped and says will keep taking it. Patient remained in good behavioral and impulse control. He did become irritable when discussing aftercare plan since his mother and grandmother very much wanted him to go to a program in [place]; patient was frustrated by their insistence and refused to go saying he rather go to [facility]. Patient placed a 3 day notice but retracted it to help with setting up aftercare. Patient remains eating and drinking and sleeping well; tolerating medications which he says he will continue taking. Patient's mother called and spoke with telegraphic typewriter repairer; she was initially concerned with his medication regimen however after further discussion she agreed that he has both manic and depressive episodes with psychotic symptoms in-between and agreed with both diagnosis of schizoaffective disorder and medication regimen. By the end of admission, patient's mood had improved and irritability abated; his affect was noticeably brighter and he was both friendly and pleasant. Patient again discussed medications and also shared his own adequate insight into his psychiatric illness and need for medications. Patient is stable and at baseline. Good mood and with improved insight having an adequate understanding of his psychiatric illness and need for medication. Patient is future oriented. He is not in imminent risk for harm to self or others and appropriate to return to the community for treatment. Request for discharge honored Time spent discussing smoking cessation with patient: 3 to 10 minutes Status at Discharge Functional status at discharge: independent ambulation Overall status at discharge: patient is back to baseline Time Spent with Patient Time attestation: Total time managing care of this patient today ____ minutes. Time spent: Less than 30 minutes Discharge Plan Discharge Anticipated Discharge Date/Time: 07/21/24 10:30 Patient Disposition: Home, Self-Care Discharge Diagnosis: schizoaffective disorder, bipolar type Referrals: [facility] Intake: [facility] [Other] - 07/25/24 8:00 am (Intake appointment is typically one hour to one & a half hours. You will then start the program the next day, 07/26/24, at 9am. The program is M-F 9am-2pm for an average of two weeks. [facility] on the hospital campus, behind the main hospital building. Follow the silver/blue signs for Behavioral Health ; enter Park[address] and you will see a red trailer attached to a brick building; the brick building is the [facility] building. Enter the brick building down the walkway and door on the right. ) Longshore Equipment Operator: Clari ([facility]) [Other] - 1 Week (You may call Clari at the above number and Ext. [phone] for assistance with accessing additional services or any questions on covered services or obtaining resources ) Psych Prescriber: Lyssa Bowman ([facility]) [Other] - 07/25/24 2:00 pm (Appointment is in person at the office ) Discharge Medications: New nicotine (polacrilex) 2 mg Gum 2 mg buccal Q2H PRN (Reason: Nicotine Cravings) 30 Days Qty: 100 0RF clozapine 25 mg tablet 75 mg PO BEDTIME 30 Days Qty: 90 0RF hydroxyzine HCl 25 mg Tablet 25 mg PO Q6H PRN (Reason: mild anxiety) 30 Days Qty: 60 0RF lithium carbonate 300 mg Tablet Extended Release 600 mg PO BEDTIME 30 Days Qty: 60 0RF trazodone 50 mg Tablet 50 mg PO BEDTIME PRN (Reason: Insomnia) 30 Days Qty: 30 0RF Continued loratadine 10 mg tablet 10 mg PO DAILY 30 Days Qty: 30 0RF Changed clonidine HCl 0.1 mg Tablet 0.1 mg PO Q4H PRN (Reason: moderate Anxiety) 30 Days Qty: 90 0RF Discontinued multivitamin [Daily-Latoya] Tablet 1 tab PO DAILY thiamine HCl (vitamin B1) 100 mg tablet 100 mg PO DAILY folic acid 1 mg tablet 1 mg PO DAILY Invega Sustenna 234 mg/1.5 mL syringe 234 mg IM QMONTH lithium carbonate 450 mg tablet extended release 450 mg PO BID divalproex 500 mg tablet,delayed release (DR/EC) 500 mg PO BID Discharge Orders: Discharge Order (Routine); Ordered 07/21/24 Ordered By: Srini Harris Diet: Regular diet Activity on Discharge: As tolerated Stand Alone Forms: Patient Portal Discharge page, Community Support Print Language: Greenlandic Care Plan Goals: Maintain mood and safe behaviors Take medications as prescribed Continue to pursue sobriety Practice coping skills Continue with outpatient providers and reach out to them as needed Health Concerns: Mood stability and behaviors Plan of Treatment: Follow up with your PCP, psychiatric provider and other outpatient providers regarding above concerns Take medications as prescribed Assessment: Risk assessment at time of discharge:? Patient was interviewed prior to discharge and found to be fully oriented and without any SI or HI. Patient has improved insight and judgment and wants to continue treatment. Patient is not in imminent risk of harm to self or others and has a safety plan that includes presenting to the closest ER or calling 911 if feeling unsafe.? Patient has been observed closely by nursing and unit staff throughout admission; patient has not engaged in any behaviors that suggest dangerousness to self or others and has demonstrated appropriate behaviors and impulse control Discharge Date/Time: 07/21/24 11:05
[2024-07-21 08:00] VITALS: BP 131/85; PULSE 95; TEMP 36.8; O2SAT 95
[2024-07-21] MEDS: Loratadine 10 MG TABLET PO (08:43)
[2024-07-21] MEDS: Multivitamin TABLET 1 TAB PO (08:43)
[2024-07-21] MEDS: Thiamine HCL 100 MG TABLET PO (08:43)
[2024-07-21] MEDS: Folic Acid 1 MG TABLET PO (08:43)
[2024-07-25 04:28] LABS: Clozapine (Clozaril) 145 mcg/L; Norclozapine 65 mcg/L (25-400)
== END 2024-07-21 11:05 | disposition home or self-care (01) | DRG 750 ==
PROVIDERS: Clinical Nurse Specialist Psychiatric/Mental Health, Adult; Admitting Provider Psychiatry & Neurology Psychiatry; Visit Provider Psychiatry & Neurology Psychiatry
DX: F25.0 Schizoaffective disorder, bipolar type (principal); Z87.891 Personal history of nicotine dependence; Z79.899 Other long term (current) drug therapy
CPT/HCPCS: 36415; 80048; 80053; 80061; 80159; 80178; 83036; 83735; 84439; 84443; 85025; 85048

== ENCOUNTER → 2024-07-14 13:53 | Outpatient (BNV) | payer BC, SELFPAY | PROVIDERS: Admitting Provider Psychiatry & Neurology Psychiatry; Visit Provider Nurse Practitioner Family | DX: Z00.8 Encounter for other general examination (principal) | CPT/HCPCS: 99429 ==

== ENCOUNTER → 2024-07-14 13:53 | Outpatient (BNV) | payer BC, SELFPAY | PROVIDERS: Admitting Provider Psychiatry & Neurology Psychiatry; Visit Provider Psychiatry & Neurology Psychiatry | DX: F20.9 Schizophrenia, unspecified (principal) | CPT/HCPCS: 90792; 99231; 99232 ==

== ENCOUNTER 2024-07-26 13:19 | Outpatient (REF) | payer BC, SELFPAY ==
[2024-07-27 13:38] LABS: Amphetamine Screen Urine Not Detected (Not Detect); Barbiturates, Urine Not Detected (Not Detect); Benzodiazepines Screen Urine Not Detected (Not Detect); Buprenorphine Scr Not Detected (Not Detect); Cannabinoid Screen Urine Not Detected (Not Detect); Cocaine Screen Urine Not Detected (Not Detect); Fentanyl, urine Not Detected (Not Detect); Methadone Screen, Urine Not Detected (Not Detect); Opiate Screen Urine Not Detected (Not Detect); Oxycodone Screen Urine Not Detected (Not Detect); Phencyclidine Screen Urine Not Detected (Not Detect)
--- OUTSIDE RECORDS SUMMARY | 2024-07-27 13:54 | XMS_ITS ---
Author Organization [facility] Address [address] [place] [id number] Phone Care Team Providers Care Pan Washer Name Role Phone Physician, No Pcp Primary Care Provider Unavaila ble Ophthalmic Surgeon Care Management Status:Identified (Enrolling) Start date:07/27/2024 Enrollment reason:Identified using hospital discharge data Overview Recent admission schizophrenia - lives with grandmother? Case Team Name Relationship Phone Rena CARLOSSW Corporate Account Executive(Responsible St aff) [phone] Continued Care and Services Coordination
--- OUTSIDE RECORDS SUMMARY | 2024-07-27 13:54 | XMS_ITS | Clinical Summary ---
Author Organization [facility] Address [address] [place] [phone] Phone Care Team Providers Care Technology Director Name Role Phone Physician, No Pcp Primary [...] EDT - 07/14/2024 1:47 PM EDT Emergency [facility] Emergency [address] [place] [phone] Keagan Anders MD Millay, Scot A, MD Kenton, Mark A, MD Garvin, MD Dereje Duenas Matthew C, Discharge Disposition: [facility] 05/10/2024 Telephone Internal Medicine - [place] [address] [place] [phone] Jose Carlos Castillo MD 05/07/2024 11:40 AM EST - 05/09/2024 9:50 AM EST [facility] Emergency [address] [place] [phone] Marques Espinoza MD Christensen, Tyler M, MD Garvin, MD Zamzam Duenas Konstantin, MD Millay, Scot A, MD Suicidal ideation (Primary Dx); 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 V28) Discharge Disposition: Home or Self Care from Last 3 Months Surgical History Surgery Date Site/Laterality Comments OTHER SURGICAL HISTORY PROCEDURE: DENIES PREVIOUS SURGERY Medical History Medical History Date Comments Heart murmur DX:Heart murmur Depression Hypokalemia 03/2023 per records [facility] Schizophrenia ([facility] V24, [facility] V28) 10/2023 per records [facility] Family History Medical History Relation Name Comments [...] Procedure Name Priority Date/Time Associated Diagnosis Comments ECG ANNOTATED 07/15/2024 POCT GLUCOSE BLOOD Routine 07/12/2024 7: 32 [...] EST from Last 3 Months Results * ECG-Annotated (07/15/2024) Provider Onbase MD ECG ORDERABLES Final Result * POCT Glucose, blood (07/12/2024 7:32 PM EDT) Glucose POCT 85 70 - 100 mg/dL 07/12/2024 7:33 PM EDT [facility] Blood Capillary blood specimen / Unknown 07/12/2024 7:32 PM EDT 07/12/2024 7:34 PM EDT Keagan Anders MD LAB POINT OF CARE T EST DOCKED DEVICE UNSOLICITED RESULTS Final Result Performing Organization Address [facility]/ZIP Co de Phone Number [facility] [address] [place] [address], [place] [phone] * ECG 12 lead (07/12/2024 7:21 PM EDT) Ventricular Rate ECG 86 BPM GEMUSE Atrial Rate 86 BPM GEMUSE P-R Interval 174 ms GEMUSE QRS Duration 96 ms GEMUSE Q-T Interval 390 ms GEMUSE QTc 466 ms GEMUSE P Wave Zaleski 48 degrees GEMUSE R Zaleski 41 degrees GEMUSE T Zaleski 41 degrees GEMUSE ECG Interpretation Normal sinus rhythm Normal ECG No previous ECGs available Confirmed by KISHAN DUMONT ([id number]) on 07/13/2024 8:19:06 AM GEMUSE 07/12/2024 7:21 PM EDT 07/13/2024 8:19 AM EDT Keagan Anders MD ECG ORDERABLES Final Resul t GEMUSE * XR Chest 2 Views (07/12/2024 7:13 PM EDT) Anatomical Region Laterality Modality Body Radiographic Martha ging 07/13/2024 8:19 AM EDT Impressions 07/13/2024 8:21 AM EDT 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 Otherwise, normal examination. Code 79049 -------- FINAL REPORT -------- Dictated By: Kuldip Christian Dictated Date: 07/13/2024 08:19 ET Assigned Physician: Kuldip Christian Reviewed and Electronically Signed By: Kuldip Christian Signed Date: 07/13/2024 08:21 ET Workstation ID: [id number] Transcribed By: Self Edit Transcribed Date: 07/13/2024 [...] rudimentary, a congenital variant. Otherwise, normalexamination. Code 92166 -------- FINAL REPORT -------- Dictated By: Kuldip Christian Dictated Date: 07/13/2024 08:19 ET Assigned Physician: Kuldip Christian Reviewed and Electronically Signed By: Kuldip Christian Signed Date: 07/13/2024 08:21 ET Workstation ID: [id number] Transcribed By: Self Edit Transcribed Date: 07/13/2024 08:19 ET us Keagan Anders MD IMG XR PROCEDURES Final Res ult * Methadone, urine (07/12/2024 6:18 PM EDT) Only the most recent of2 resultswithin the time period is included. Methadone Screen, Urine Negative Negative LAB CHEMISTRY METHOD 07/12/2024 7:21 PM EDT [facility] Comment: Assay cutoff 300 ng/mL Semi-quantitative assay for screening purposes only. Unconfirmed screening result should not be used for non-medical purposes. *ALTERNATE METHOD CONFIRMATION DONE UPON REQUEST ONLY* Urine Urine specimen obtained by clean catch procedure / Unknown Non-blood Collection / Unknown 07/12/2024 6:18 PM EDT 07/12/2024 6:30 PM EDT Keagan Anders MD LAB URINE ORDERABLES Final Result Performing Organization Address [facility]/ZIP Co de Phone Number [facility] [address] [place] [address], [place] [phone] * Fentanyl urine (07/12/2024 6:18 PM EDT) [facility] Fentanyl, Ur Negative Negative LAB CHEMISTRY METHOD 07/12/2024 7:16 PM EDT [facility] Urine Urine specimen obtained by clean catch procedure / Unknown Non-blood Collection / Unknown 07/12/2024 6:18 PM EDT 07/12/2024 6:30 PM EDT Narrative [facility] - 07/12/2024 7:16 PM EDT Assay cutoff 1 ng/mL Semi-quantitative assay for screening purposes only. Unconfirmed screening result should not be used for non-medical purposes. *ALTERNATE METHOD CONFIRMATION DONE UPON REQUEST ONLY* Keagan Anders MD LAB URINE ORDERABLES Final Result Performing Organization Address [facility]/ZIP Co de Phone Number [facility] [address] [place] [address], [place] [phone] * (ABNORMAL) Urinalysis with reflex microscopic and culture (07/12/2024 5:52 PM EDT) [facility] Specific [place] Urine 1.018 1.003 - 1.030 LAB URINALYSIS - AUTOMATED METHOD 07/12/2024 6:46 PM EDT [facility] pH, Urine 6.0 5.0 - 8.0 pH LAB URINALYSIS - AUTOMATED METHOD 07/12/2024 6:46 PM [facility] Leukocytes, Urine Negative Negative LAB URINALYSIS - AUTOMATED METHOD 07/12/2024 6:46 PM [facility] Nitrite, Urine Negative Negative LAB URINALYSIS - AUTOMATED METHOD 07/12/2024 6:46 PM [facility] Protein, Urine 30(A) <=Trace mg/dL LAB URINALYSIS - AUTOMATED METHOD 07/12/2024 6:46 PM [facility] Glucose, Urine Negative Negative mg/dL LAB URINALYSIS - AUTOMATED METHOD 07/12/2024 6:46 PM [facility] Ketones, Urine 40(A) Negative mg/dL LAB URINALYSIS - AUTOMATED METHOD 07/12/2024 6:46 PM [facility] Urobilinogen, Urine 1.0 0.2 - 1.0 mg/dL LAB URINALYSIS - AUTOMATED METHOD 07/12/2024 6:46 PM [facility] Bilirubin, Urine Negative Negative LAB URINALYSIS - AUTOMATED METHOD 07/12/2024 6:46 PM [facility] Blood, Urine Negative Negative LAB URINALYSIS - AUTOMATED METHOD 07/12/2024 6:46 PM [facility] RBC, Urine 1.9 0 - 4 /HPF LAB URINALYSIS - AUTOMATED METHOD 07/12/2024 6:46 PM [facility] WBC, Urine 2.3 0 - 4 /HPF LAB URINALYSIS - AUTOMATED METHOD 07/12/2024 6:46 PM [facility] Squamous Epithelial, Urine 21 0 - 60 /LPF LAB URINALYSIS - AUTOMATED METHOD 07/12/2024 6:46 PM [facility] Bacteria, Urine Negative Negative /HPF LAB URINALYSIS - AUTOMATED METHOD 07/12/2024 6:46 PM EDT [facility] Hyaline Casts, Urine 1.6 0 - 3 /LPF LAB URINALYSIS - AUTOMATED METHOD 07/12/2024 6:46 PM EDT [facility] Urine Urine specimen obtained by clean catch procedure / Unknown Non-blood Collection / Unknown 07/12/2024 5:52 PM EDT 07/12/2024 6:29 PM EDT Keagan Anders MD LAB URINE ORDERABLES Final Result Performing Organization Address [facility]/ZIP Co de Phone Number [facility] [address] [place] [address], [place] [phone] * Lee urine culture tube (07/12/2024 5:52 PM EDT) Extra Tube Hold for add-ons. 07/12/2024 8:01 PM EDT [facility] Comment:Auto resulted. Urine Urine specimen obtained by clean catch procedure / Unknown Non-blood Collection / Unknown 07/12/2024 5:52 PM EDT 07/12/2024 6:29 PM EDT Keagan Anders MD LAB URINE ORDERABLES Final Result Performing Organization Address [facility] de Phone Number [facility] [address] [place] [address], [place] [phone] * (ABNORMAL) CBC auto differential (07/12/2024 5:30 PM EDT) Only the most recent of2 resultswithin the time period is included. WBC 8.1 4.8 - 10.8 K/[facility] HEMETOLOGY METHOD 07/12/2024 6:01 PM EDT [facility] RBC 5.20 4.50 - 5.50 M/[facility] LAB HEMETOLOGY METHOD 07/12/2024 6:01 PM EDT [facility] Hemoglobin 14.9 13.5 - 17.5 g/dL LAB HEMETOLOGY METHOD 07/12/2024 6:[facility] PM [facility] Hematocrit 45.4 42.0 - 54.0 % LAB HEMETOLOGY METHOD 07/12/2024 6:01 PM [facility] MCV 87.1 79.0 - 98.0 FL LAB HEMETOLOGY METHOD 07/12/2024 6:01 PM [facility] MCH 28.6 27.0 - 32.0 pcg LAB HEMETOLOGY METHOD 07/12/2024 6:01 PM [facility] MCHC 32.8 32.0 - 37.0 g/dL LAB HEMETOLOGY METHOD 07/12/2024 6:01 PM [facility] RDW 13.1 11.0 - 15.0 % LAB HEMETOLOGY METHOD 07/12/2024 6:01 PM [facility] Platelets 247 130 - 400 K/mcL LAB HEMETOLOGY METHOD 07/12/2024 6:01 PM [facility] MPV 11.9(H) 7.0 - 11.0 FL LAB HEMETOLOGY METHOD 07/12/2024 6:01 PM [facility] NRBC 0.0 <1.0 % LAB HEMETOLOGY METHOD 07/12/2024 6:01 PM [facility] NRBC Absolute 0.00 <0.10 K/mcL LAB HEMETOLOGY METHOD 07/12/2024 6:01 PM [facility] Neutrophils Relative 74.7 % LAB HEMETOLOGY METHOD 07/12/2024 6:01 PM [facility] Lymphocytes Relative 16.0 % LAB HEMETOLOGY METHOD 07/12/2024 6:01 PM [facility] Monocytes Relative 7.7 % LAB HEMETOLOGY METHOD 07/12/2024 6:01 PM EDT [facility] Eosinophils Relative 0.9 % LAB HEMETOLOGY METHOD 07/12/2024 6:01 PM EDT [facility] Basophils Relative 0.5 % LAB HEMETOLOGY METHOD 07/12/2024 6:01 PM [facility] Immature Granulocytes Relative 0.2 % LAB HEMETOLOGY METHOD 07/12/2024 6:01 PM EDT [facility] Neutrophils Absolute 6.07 1.50 - 7.00 K/mcL LAB HEMETOLOGY METHOD 07/12/2024 6:01 PM EDT [facility] Lymphocytes Absolute 1.30 1.00 - 5.00 K/mcL LAB HEMETOLOGY METHOD 07/12/2024 6:01 PM [facility] Monocytes Absolute 0.63 0.20 - 1.00 K/mcL LAB HEMETOLOGY METHOD 07/12/2024 6:01 PM EDT [facility] Eosinophils Absolute 0.07 0.00 - 0.50 K/mcL LAB HEMETOLOGY METHOD 07/12/2024 6:01 PM EDT [facility] Basophils Absolute 0.04 0.00 - 0.20 K/mcL LAB HEMETOLOGY METHOD 07/12/2024 6:01 PM EDT [facility] Immature Granulocytes Absolute 0.02 0.00 - 0.03 K/mcL LAB HEMETOLOGY METHOD 07/12/2024 6:01 PM EDT [facility] Blood Venous blood specimen / Unknown Venipuncture / Unknown 07/12/2024 5:30 PM EDT 07/12/2024 5:51 PM EDT us Keagan Anders MD LAB BLOOD ORDERABLES Final Result [facility] [address] [place] [address], [place] [phone] * Thyroid stimulating hormone (TSH) (07/12/2024 5:30 PM EDT) TSH 3.69 0.40 - 4.00 mcIU/mL LAB CHEMISTRY METHOD 07/12/2024 8:56 PM EDT [facility] Blood Venous blood specimen / Unknown Venipuncture / Unknown 07/12/2024 5:30 PM EDT 07/12/2024 5:51 PM EDT Keagan Anders MD LAB BLOOD ORDERABLES Final Result [facility] [address] [place] [address], [place] [phone] * (ABNORMAL) Ammonia (07/12/2024 5:30 PM EDT) Ammonia <10(L) 11 - 35 mcmol/L LAB CHEMISTRY METHOD 07/12/2024 6:20 PM EDT [facility] Blood Venous blood specimen / Unknown Venipuncture / Unknown 07/12/2024 5:30 PM EDT 07/12/2024 5:51 PM EDT Keagan Anders MD LAB BLOOD ORDERABLES Final Result Performing Organization Address City/[facility]/ZIP Co de Phone Number [facility] [address] [place] [address], [place] [phone] * Ethanol (07/12/2024 5:30 PM EDT) Only the most recent of2 resultswithin the time period is included. Ethanol Level 5 0 - 10 mg/dL LAB CHEMISTRY METHOD 07/12/2024 6:33 PM EDT [facility] Blood Venous blood specimen / Unknown Venipuncture / Unknown 07/12/2024 5:30 PM EDT 07/12/2024 5:51 PM EDT Keagan Anders MD LAB BLOOD ORDERABLES Final Result Performing Organization Address City/[facility] Co de Phone Number [facility] [address] [place] [address], [place] [phone] * (ABNORMAL) Acetaminophen level (07/12/2024 5:30 PM EDT) Only the most recent of2 resultswithin the time period is included. Acetaminophen Level <2.0(L) 10.0 - 30.0 mcg/mL LAB CHEMISTRY METHOD 07/12/2024 6:33 PM EDT [facility] Blood Venous blood specimen / Unknown Venipuncture / Unknown 07/12/2024 5:30 PM EDT 07/12/2024 5:51 PM EDT Keagan Anders MD LAB BLOOD ORDERABLES Final Result Performing Organization Address [facility] de Phone Number [facility] [address] [place] [address], [place] [phone] * [place] level (07/12/2024 5:30 PM EDT) [place] Level 0.7 0.6 - 1.2 mEq/L LAB CHEMISTRY METHOD 07/12/2024 6:33 PM EDT [facility] Blood Venous blood specimen / Unknown Venipuncture / Unknown 07/12/2024 5:30 PM EDT 07/12/2024 5:51 PM EDT Keagan Anders MD LAB BLOOD ORDERABLES Final Result Performing Organization Address [facility] Co de Phone Number [facility] [address] [place] [address], [place] [phone] * (ABNORMAL) Comprehensive metabolic panel (07/12/2024 5:30 PM EDT) Only the most recent of2 resultswithin the time period is included. Sodium 135 133 - 145 mmol/L LAB CHEMISTRY METHOD 07/12/2024 6:33 PM [facility] Potassium 4.0 3.5 - 5.5 mmol/L LAB CHEMISTRY METHOD 07/12/2024 6:33 PM [facility] Comment:Hemolysis present Chloride 102 96 - 110 mmol/L LAB CHEMISTRY METHOD 07/12/2024 6:33 PM [facility] CO2 25 21 - 32 mmol/L LAB CHEMISTRY METHOD 07/12/2024 6:33 PM [facility] Anion Gap 8 3 - 11 LAB CHEMISTRY METHOD 07/12/2024 6:33 PM [facility] Glucose 97 70 - 100 mg/dL LAB CHEMISTRY METHOD 07/12/2024 6:33 PM [facility] BUN 8 5 - 25 mg/dL LAB CHEMISTRY METHOD 07/12/2024 6:33 PM [facility] Creatinine 0.92 0.70 - 1.30 mg/dL LAB CHEMISTRY METHOD 07/12/2024 6:33 PM [facility] eGFR 120 >=60 mL/min/1. 73m2 LAB CHEMISTRY METHOD 07/12/2024 6:33 PM [facility] Comment:Calculation based on the Chronic Kidney Disease Epidemiology Collaboration (CKD-EPI) equation refit without adjustment for race. BUN/Creatinine Ratio 8.7 LAB CHEMISTRY METHOD 07/12/2024 6:33 PM [facility] Calcium 9.9 8.5 - 10.5 mg/dL LAB CHEMISTRY METHOD 07/12/2024 6:33 PM [facility] AST (SGOT) 16 10 - 42 unit/L LAB CHEMISTRY METHOD 07/12/2024 6:33 PM [facility] Comment:Hemolysis present ALT (SGPT) 21 10 - 60 unit/L LAB CHEMISTRY METHOD 07/12/2024 6:33 PM EDT [facility] Alkaline Phosphatase 90 42 - 121 unit/L LAB CHEMISTRY METHOD 07/12/2024 6:33 PM EDT [facility] Total Protein 8.5(H) 6.0 - 8.0 g/dL LAB CHEMISTRY METHOD 07/12/2024 6:33 PM EDT [facility] Albumin 4.7 3.2 - 5.0 g/dL LAB CHEMISTRY METHOD 07/12/2024 6:33 PM EDT [facility] Total Bilirubin 0.6 0.0 - 1.4 mg/dL LAB CHEMISTRY METHOD 07/12/2024 6:33 PM EDT [facility] Blood Venous blood specimen / Unknown Venipuncture / Unknown 07/12/2024 5:30 PM EDT 07/12/2024 5:51 PM EDT Keagan Anders MD LAB BLOOD ORDERABLES Final Result [facility] [address] [place] [address], * (ABNORMAL) Drug abuse screen 8a panel, urine (05/07/2024 11:54 AM EST) Amphetamine Screen, Ur Negative Negative LAB CHEMISTRY METHOD 5 12:46 PM EST [facility] Comment:Certain OTC medicati ons containing ephedrine, phenylephrine, pseudoephedrine and phenylpropanolamine can cause false positive results. Barbiturate Screen, Ur Negative Negative LAB CHEMISTRY METHOD 5 12:46 PM EST [facility] Benzodiazepine Screen, Ur Negative Negative LAB CHEMISTRY METHOD 5 12:46 PM EST [facility] Cocaine Screen, Ur Negative Negative LAB CHEMISTRY METHOD 5 12:46 PM EST [facility] Opiate Screen, Ur Negative Negative LAB CHEMISTRY METHOD 12:46 PM EST [facility] Cannabinoid (THC) Screen, Ur Positive(A ) Negative LAB CHEMISTRY METHOD 12:46 PM EST [facility] Comment:Specimens from patie nts taking pantoprazole sodium (Protonix) have been shown to produce false positive results. Oxycodone Screen, Ur Negative Negative LAB CHEMISTRY METHOD 12:46 PM EST [facility] Fentanyl, Ur Negative Negative LAB CHEMISTRY METHOD 12:[address] [facility] Urine Urine specimen obtained by clean catch procedure / Unknown Non-blood Collection / Unknown 05/07/2024 11:54 AM EST 05/07/2024 12:14 PM EST [facility] - 05/07/2024 12:46 PM EST Assay [...] MD LAB URINE ORDERABLES Final Resu lt [facility]) [facility] [address] [place] [address], * Buprenorphine screen, urine (05/07/2024 11:54 AM EST) Buprenorphine Screen Urine Negative Negative LAB CHEMISTRY METHOD 05/07/2024 12:46 PM EST [facility] Urine Urine specimen obtained by clean catch procedure / Unknown Non-blood Collection / Unknown 05/07/2024 11:54 AM EST 05/07/2024 12:14 PM EST Narrative [facility] - 05/07/2024 12:46 PM EST Assay cutoff 5 ng/mL Semi-quantitative assay for screening purposes only. Unconfirmed screening result should not be used for non-medical purposes. *ALTERNATE METHOD CONFIRMATION DONE UPON REQUEST ONLY* Marques Espinoza MD LAB URINE ORDERABLES Final Resu lt Performing Organization Address [facility] de Phone Number [facility] [address] [place] [address], [place] [phone] * Phencyclidine, urine (05/07/2024 11:54 AM EST) PCP Scrn, Ur Negative Negative LAB CHEMISTRY METHOD 05/07/2024 12:46 PM EST [facility] Comment: Assay cutoff 25 ng/mL Semi-quantitative assay for screening purposes only. Unconfirmed screening result should not be used for non-medical purposes. *ALTERNATE METHOD CONFIRMATION DONE UPON REQUEST ONLY* Urine Urine specimen obtained by clean catch procedure / Unknown Non-blood Collection / Unknown 05/07/2024 11:54 AM EST 05/07/2024 12:14 PM EST Marques Espinoza MD LAB URINE ORDERABLES Final Resu lt Performing Organization Address [facility] Co de Phone Number [facility] [address] [place] [address], [place] [phone] * (ABNORMAL) Salicylate level (05/07/2024 11:53 AM EST) Salicylate Level <1.7(L) 2.0 - 29.0 mg/dL LAB CHEMISTRY METHOD 05/07/2024 12:53 PM EST [facility] Blood Venous blood specimen / Unknown Venipuncture / Unknown 05/07/2024 11:53 AM EST 05/07/2024 12:14 PM EST us Marques Espinoza MD LAB BLOOD ORDERABLES Final Resu lt [facility] [address] [place] [address], [place] [phone] from Last 3 Months Insurance [facility] Care Teams Technology Director Relationship Specialty Start Date End Date Physician, No Pcp PCP - General 07/12/24
== END 2024-07-26 13:20 | disposition home or self-care (01) ==
LOC: HO.LNP 13:19
PROVIDERS: Visit Provider Psychiatry & Neurology Psychiatry
DX: F12.11 Cannabis abuse, in remission (principal); F10.11 Alcohol abuse, in remission; F20.9 Schizophrenia, unspecified
CPT/HCPCS: 80307

== ENCOUNTER → 2024-07-28 10:15 | Outpatient (BNV) | payer BC, SELFPAY | PROVIDERS: Visit Provider Psychiatry & Neurology Psychiatry | DX: F20.9 Schizophrenia, unspecified (principal); F10.10 Alcohol abuse, uncomplicated; F12.10 Cannabis abuse, uncomplicated | CPT/HCPCS: 99203 ==

== ENCOUNTER 2024-08-03 10:00 | Outpatient (RCR) | payer BC, SELFPAY ==
[2024-07-26 10:26] VITALS: BMI 32.5
[2024-07-26 10:27] VITALS: BP 118/86; PULSE 88; TEMP 36.9
--- NOTE | 2024-07-26 13:55 | HO.PS.ADMBH ---
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- Reports doing ok on meds dced from hospital on - current meds doing ok - lithium/clozapine prior to hospitalization had not been eating and been delusional and non compliant with medications Patient also has hx of alcohol/cannabis use disorders- Past Psychiatric History: multiple inpt admissions [facility] Medical History (Updated 07/28/24 @ 13:13 by Cha Roberts MD) No known health problems Family History: deferred Social History: lives at home with parents some college; apparently driving for [employer] Substance History: alcohol, and cannabis Trauma History: deferred Diagnostics Vital Signs (24Hr): Vital Signs - 24 hr 07/26/24 10:27 Temperature 98.5 F Pulse Rate 88 Blood Pressure 118/86 BMI result Body Mass Index 32.5 Meds/Allergies Meds Narrative: clozapine 75mg, lithium 900mg/day , clonodine, hydroxyzine and trazodone Allergies Allergies Allergy/AdvReac Type Severity Reaction Status Date / Time No Known Allergies Allergy Verified 07/14/24 16:16 Mental Status Exam Mental Status Exam Patient Appearance: Appropriate and Rigid Patient Orientation: Person, Place, Time and Situation Level of Consciousness: Awake and Alert Patient Behavior: Guarded Mood Description: Apathetic Affect Description: Blunted Patient Cognition Impaired: No Ability to Follow Directions: Fair Speech Pattern: Clear and Impoverished Hallucinations: None Delusions: Not Present Thought Process: Intact and Goal Oriented Thought Content: positive for Elsie and positive for Poverty of Content Judgement: Fair Assessment & Plan Assessment & Plan (1) Schizophrenia: Status: Acute Code(s): F20.9 - Schizophrenia, unspecified (2) Alcohol abuse: Status: Acute Code(s): F10.10 - Alcohol abuse, uncomplicated (3) Cannabis abuse: Status: Acute Code(s): F12.10 - Cannabis abuse, uncomplicated Plan continue current medications unchanged reviewed- not needing trazodone if sedated with clozapine and sleeping ok Patient educated on: medication risk/benefits and therapeutic strategies Informed Consent: understands and further education needed Reason for continued partial hosp. stay Substantial Risk for: rapid decompensation Certification I certify that partial hospital treatment is medically necessary due to the symptoms and problems resulting from the patient's mental illness and the failure to treat the patient at the partial hospital level of care would likely result in the patient requiring inpatient psychiatric care which could not be prevented at a less intensive level of care. Time Spent With Patient Time: Total time managing care of this patient today ____ minutes.
--- NOTE | 2024-07-26 15:01 | PC.ADMIT ---
Patient is a 23 year old single male who was referred to [facility] by [facility] inpatient behavioral health unit where he was admitted from 07/24-07/21/24. Patient has a history of Schizophrenia dx. According to medical records patient was admitted to inpatient LOC secondary to poor functioning with poor food intake secondary to experiencing command hallucinations. At that time patient appeared internally preoccupied, was slow to respond, and appeared disorganized. In addition patient had a recent inpatient stay at [facility] and [facility]. Patient reports medication helps. Patient stated, Its like a trade off I don't experience emotions but not dealing with as much negative thoughts. Patient is alert and oriented x4. He is calm and cooperative. He presented with depressed mood, flat affect. He denied SI, no HI. He was given a copy of his safety plan if needed. Regarding AH, patient denied at present. Patient stated, If I smoke a weed I hear a lot of voices. Regarding VH patient stated, I see shadow figures . Patient stated he has not seen them since he was in the hospital. In regards to paranoid thoughts, patient stated, Sometimes but not really . Patient denied currently. When asked to elaborate patient stated, Just that I was going to lose my life. Patient did not appear to be responding to internal stimuli or seem internally preoccupied during the assessment. Some poverty of content noted. Patient's medications updated with patient and discharge medication list from [facility] inpatient behavioral health unit. Patient reports he is taking medications as prescribed. Patient has a significant history of Alcohol use and marijuana use. Patient reports last use of Alcohol was on July 02, 2024. Patient reports he would drink daily drinking 10-15 beers or 10 nips. Patient stated sometimes he drank both nips and beers. Reports he has been drinking daily for the past three years. He is unsure if had withdrawal symptoms in the hospital. He denied any current symptoms including no diaphoresis, no tremors, no N/V. Patient also reports he was using marijuana daily smoking throughout the day. Last use was a few months ago. Educated patient about [facility] substance use groups. Patient agreeable to trying the substance groups for more support.
--- NOTE | 2024-07-28 16:25 | HO.PHP ---
Client's case has been opened and reviewed in team.
--- NOTE | 2024-08-02 15:42 | HO.PHP ---
Keagan was contacted by [facility] staff when he did not arrive for programming by 9:15 am. Pt stated he was driving to program when he had a bowel emergency and needed to turn around and go back home, stated he would hurry and come in today by 10:30, past the cut-off time. Keagan was informed he will not be able to come in at that time, pt asked not to be discharged, stated he was aware he has missed several days but would like to be excused for today. Reports he will come in tomorrow and assures staff he would not miss any more days. Keagan denied SI, no safety concerns, pt scheduled to resume at [facility] tomorrow.
--- NOTE | 2024-08-03 15:31 | HO.PHP ---
[facility] staff member contacted Keagan due to him leaving during group 2 and not returning to the program. Keagan stated that he checked out being here and being here reminded him of his hospital stays, which is difficult for him and he wants to focus on the future. [facility] staff member explored if he will be returning to the program tomorrow or if he is discharging. Keagan asked if he was required to attend. [facility] staff member noted that this is a voluntary program. Keagan mentioned that he would like to get back to work and is going to discharge. [facility] staff member, Paige informed him that he will call him around 2 PM to complete the discharge.
--- NOTE | 2024-08-03 15:38 | HO.PHP ---
Coordinate Measuring Machine Technician called Keagan to complete phone discharge but pt did not answer, a message was left requesting a call back.
== END 2024-08-03 23:59 | disposition home or self-care (01) ==
LOC: HO.PHPA 10:00
PROVIDERS: Visit Provider Psychiatry & Neurology Psychiatry
DX: F20.9 Schizophrenia, unspecified (principal); F10.10 Alcohol abuse, uncomplicated; F12.10 Cannabis abuse, uncomplicated
CPT/HCPCS: 90791; 90853